=== PATIENT | female | born 1960 | race Caucasian/White ===

== ENCOUNTER → 2017-06-25 15:40 | Outpatient (CLI) | payer OTHER, SELFPAY ==
[2017-06-25 18:10] LABS: Anion Gap 4 (5-15); BUN 15 mg/dL (7-18); BUN/Creat Ratio 17.7 RATIO (10-20); Calcium,Total 9.2 mg/dL (8.5-10.1); Chloride 107 mmol/L (98-107); Cholesterol 200 mg/dL (200); Creatinine, Serum 0.85 mg/dL (0.55-1.02); EST Glomerular Filtration Rate 73 mL/min (>60); Est Glom Filt Rate - Afr Amer 89 mL/min (>60); Glucose 84 mg/dL (74-106); High Density Lipoprotein 53 mg/dL; Sodium Level 140 mmol/L (136-145); Triglycerides 166 mg/dL; Very Low Density Lipoprotein 33 mg/dL (5-40)
[2017-06-25 18:16] LABS: Vitamin D,25 Hydroxy 25.6 ng/mL (29.95-100.01)
== END ==
PROVIDERS: Family Provider Family Medicine; PCP Family Medicine; Visit Provider Family Medicine
DX: I11.0 Hypertensive heart disease with heart failure (principal); E55.9 Vitamin D deficiency, unspecified
CPT/HCPCS: 36415; 80048; 80061; 82306

== ENCOUNTER → 2017-12-26 10:32 | Outpatient (CLI) | payer OTHER, SELFPAY ==
[2017-12-26 12:39] LABS: Anion Gap 8 (5-15); BUN 27 mg/dL (7-18); BUN/Creat Ratio 37.4 RATIO (10-20); Calcium,Total 8.8 mg/dL (8.5-10.1); Chloride 103 mmol/L (98-107); Cholesterol 210 mg/dL (200); Creatinine, Serum 0.72 mg/dL (0.55-1.02); EST Glomerular Filtration Rate 88 mL/min (>60); Est Glom Filt Rate - Afr Amer 107 mL/min (>60); Glucose 94 mg/dL (74-106); High Density Lipoprotein 55 mg/dL; Potassium 3.8 mmol/L (3.5-5.1); Sodium Level 137 mmol/L (136-145); Triglycerides 111 mg/dL; Very Low Density Lipoprotein 22 mg/dL (5-40)
== END ==
PROVIDERS: Family Provider Family Medicine; PCP Family Medicine; Visit Provider Family Medicine
DX: I10 Essential (primary) hypertension (principal)
CPT/HCPCS: 36415; 80048; 80061

== ENCOUNTER → 2018-01-09 07:48 | Outpatient (CLI) | payer OTHER, SELFPAY ==
--- NOTE | 2018-01-09 07:51 | ECHOD_ITS ---
Reason For Study: SHORTNESS OF BREATH ON EXERTION Procedure This was a 2D Doppler, Color Flow transthoracic echocardiogram. Exam performed in department. Left Ventricle Normal size and thickness. The estimated ejection fraction is 65 %. Stage 1 diastolic dysfunction. No regional wall motion abnormalities noted. Right Ventricle Normal size and thickness. Normal systolic function. Atria Normal left atrium. Normal right atrium. Normal atrial septum. Mitral Valve The mitral valve is structurally normal. No prolapse or stenosis seen. Trivial mitral valve insufficiency. Tricuspid Valve Normal tricuspid valve. Mild (1+) tricuspid valve insufficiency. Right ventricular systolic pressure estimated to be 36 mmHg. Aortic Valve Trisinus/trileaflet aortic valve. Normal aortic valve. Pulmonic Valve Normal pulmonic valve. Great Vessels Normal aortic root. Normal arch. Normal inferior vena cava. Inferior vena cava collapse with sniff. Pericardium/Pleural No pericardial effusion. MMode/2D Measurements & Calculations LVIDd: 4.8 cm IVSd: 0.98 cm Ao root diam: 3.2 cm LVIDs: 3.2 cm LVPWd: 1.0 cm RVDd: 4.2 cm FS: 32.8 % LAV(MOD-bp): 56.3 ml LVAd ap4: 36.3 cm2 SV(MOD-sp4): 80.2 ml LAV(MOD-bp) Indexed: 27.0 ml/m2 EDV(MOD-sp4): 127.6 ml LAV(MOD-sp2): 61.6 ml EDV(sp4-el): 134.7 ml LAV(MOD-sp4): 50.7 ml LVAs ap4: 19.3 cm2 ESV(MOD-sp4): 47.4 ml ESV(sp4-el): 49.1 ml EF(MOD-sp4): 62.9 % EF(sp4-el): 63.5 % SV(sp4-el): 85.6 ml LA A4 area: 18.7 cm2 LA dimension(2D): 3.7 cm RA A4 area: 15.4 cm2 Time Measurements MV dec time: 0.19 sec Doppler Measurements & Calculations MV E max esteban: 96.4 cm/sec Lat Peak E' Esteban: 8.0 cm/sec Med Peak E' Esteban: 7.4 cm/sec MV A max esteban: 103.0 cm/sec E/E' lat: 12.1 E/E' med: 13.1 MV E/A: 0.94 Ao V2 max: 154.5 cm/sec LV V1 max: 110.8 cm/sec PA V2 max: 86.6 cm/sec Ao max P.5 mmHg LV V1 max P.9 mmHg TR max esteban: 278.2 cm/sec TR max P.0 mmHg Interpretation Summary The estimated ejection fraction is 65 %. Stage 1 diastolic dysfunction. Trivial mitral valve insufficiency. Mild (1+) tricuspid valve insufficiency. Right ventricular systolic pressure estimated to be 36 mmHg. There is no comparison study available. Ordering Physician: Yusuf Bobo Referring Physician: Yusuf Bobo Performed By: Daina Amanda RDCS
--- OUTSIDE RECORDS SUMMARY | 2018-03-06 12:08 | XMS RPT_ITS ---
:1960 Author Organization [facility] Care Team Providers Name Role Phone Chris Gutierrez Attending Unavailable BoboYusuf Referring Unavailable Bobo, Yusuf Attending Unavailable Bobo, Yusuf Primary Care Unavailable Bobo, Yusuf Attending Unavailable Bobo, Yusuf Primary Care Unavailable Bobo, Yusuf Attending Unavailable Bobo, Yusuf Referring Unavailable Bobo, Yusuf Primary Care Unavailable PROBLEMS PROBLEMS DATE TYPE CONDITION / CODE ATTENDING STATUS SOURCE 01/28/2018 Unknown R06.02 - Shortness Chris Gutierrez Active Nae of breath / Community R06.02(ICD-10) Hospital Repository 12/26/2017 Unknown I10 - Essential Yusuf Bobo Active Nae (primary) Community hypertension / Hospital I10(ICD-10) Repository PROCEDURES PROCEDURES No Procedure Records FoundRESULTS RESULTS ECHOCARDIOGRAM COMPLETE Observed: 01/09/2018 Status: F Source: NAE 3:25 PM [facility] REPOSITORY [facility] Cardiovascular Services [address] [place] [address] Echo Complete 01/09/18 0802 MR#: [id number] Acct: [id number] Name: BJ ROSADO Rep #: [id number] : 1960 57 From: Chris Gutierrez MD Attending Dr: Yusuf Bobo MD Status: REG CLI Ordering Dr: Yusuf Bobo MD Date: 01/09/18 Location: [facility] Sex: F C Admitted: Reason For Study: SHORTNESS OF BREATH ON EXERTION Procedure This was a 2D Doppler, Color Flow transthoracic echocardiogram. Exam performed in department. Left Ventricle Normal size and thickness. The estimated ejection fraction is 65 %. Stage 1 diastolic dysfunction. No regional wall motion abnormalities noted. Right Ventricle Normal size and thickness. Normal systolic function. Atria Normal left atrium. Normal right atrium. Normal atrial septum. Mitral Valve The mitral valve is structurally normal. No prolapse or stenosis seen. Trivial mitral valve insufficiency. Tricuspid Valve Normal tricuspid valve. Mild (1+) tricuspid valve insufficiency. Right ventricular systolic pressure estimated to be 36 mmHg. Aortic Valve Trisinus/trileaflet aortic valve. Normal aortic valve. Pulmonic Valve Normal pulmonic valve. Great Vessels Normal aortic root. Normal arch. Normal inferior vena cava. Inferior vena cava collapse with sniff. Pericardium/Pleural No pericardial effusion. MMode/2D Measurements AND Calculations LVIDd: 4.8 cm IVSd: 0.98 cm Ao root diam: 3.2 cm LVIDs: 3.2 cm LVPWd: 1.0 cm RVDd: 4.2 cm FS: 32.8 % LAV(MOD-bp): 56.3 ml LVAd ap4: 36.3 cm2 SV(MOD-sp4): 80.2 ml LAV(MOD-bp) Indexed: 27.0 ml/m2 EDV(MOD-sp4): 127.6 ml LAV(MOD-sp2): 61.6 ml EDV(sp4-el): 134.7 ml LAV(MOD-sp4): 50.7 ml LVAs ap4: 19.3 cm2 ESV(MOD-sp4): 47.4 ml ESV(sp4-el): 49.1 ml EF(MOD-sp4): 62.9 % EF(sp4-el): 63.5 % SV(sp4-el): 85.6 ml LA A4 area: 18.7 cm2 LA dimension(2D): 3.7 cm RA A4 area: 15.4 cm2 Time Measurements MV dec time: 0.19 sec Doppler Measurements AND Calculations MV E max esteban: 96.4 cm/sec Lat Peak E' Esteban: 8.0 cm/sec Med Peak E' Esteban: 7.4 cm/sec MV A max esteban: 103.0 cm/sec E/E' lat: 12.1 E/E' med: 13.1 MV E/A: 0.94 Ao V2 max: 154.5 cm/sec LV V1 max: 110.8 cm/sec PA V2 max: 86.6 cm/sec Ao max P.5 mmHg LV V1 max P.9 mmHg TR max esteban: 278.2 cm/sec TR max P.0 mmHg Interpretation Summary The estimated ejection fraction is 65 %. Stage 1 diastolic dysfunction. Trivial mitral valve insufficiency. Mild (1+) tricuspid valve insufficiency. Right ventricular systolic pressure estimated to be 36 mmHg. There is no comparison study available. Ordering Physician: Yusuf Bobo Referring Physician: Yusuf Bobo Performed By: Daina Amanda RDCS 01/09/18 1525 Date Chris Gutierrez MD CC: Yusuf Bobo MD Date Dictated: 01/09/18 0802 Date Transcribed: 01/09/18 1525 Clinical Medical Assistant: Signed BASIC METABOLIC Collected: 12/26/2017 Status: F Source: NAE PROFILE (BMP) 10:34 AM [facility] REPOSITORY TYPE CODE TESTS RESULT OUT OF RANGE REFERENCE UNITS LAB L501.0100 74-106 mg/dL Normal GLU 94 Result Comment: Please note revised GLUCOSE reference range effective 2017. LAB L501.1000 7-18 mg/dL High BUN 27 LAB L501.1100 0.55-1.02 mg/dL Normal CREAT,SERUM 0.72 Result Comment: The validity of the calculated GFR AND GFRAA in patients over 70 years has not been determined. Clinical correlation is essential. LAB L501.1110 >60 mL/min Normal EST GFR 88 Result Comment: Non- GFR Calc LAB L501.1115 >60 mL/min Normal EST GFR - AA 107 Result Comment: GFR Calc LAB L501.1300 10-20 RATIO High BUN/CRE 37.4 LAB L501.2200 8.5-10.1 mg/dL CA Normal 8.8 LAB L501.5300 136-145 mmol/L NA Normal 137 LAB L501.5600 3.5-5.1 mmol/L K Normal 3.8 LAB L501.5900 98-107 mmol/L CL Normal 103 LAB L501.6100 21.0-32.0 mmol/L Normal CO2 26.0 LAB L501.6200 5-15 Normal GAP 8 Performed By: #### L500.2500, L500.4100 #### [facility] [address] [place], [place], [id number] LIPID PROFILE Collected: 12/26/2017 Status: F Source: [place] 10:34 AM [facility] REPOSITORY TYPE CODE TESTS RESULT OUT OF RANGE REFERENCE UNITS LAB L501.4900 200 mg/dL High CHOL 210 Result Comment: <200 mg/dL Desirable 200-240 mg/dL Borderline >240 mg/dL High Risk LAB L501.5000 mg/dL Normal TRIG 111 Result Comment: The drugs N-Acetylcysteine and Metamizole may falsely depress this assay. Serum Triglycerides Reference Interval Normal <150 mg/dL Borderline high 150 - 199 mg/dL High 200 - 499 mg/dL Very High > or = 500 mg/dL LAB L501.6400 mg/dL Normal HDL 55 Result Comment: The drugs N-Acetylcysteine and Metamizole may falsely depress this assay. Reference Range HDL <40 mg/dL Low HDL Cholesterol HDL >or= 60 mg/dL High HDL Cholesterol LAB L501.6500 0-130 mg/dL High LDL 133 LAB L501.6600 5-40 mg/dL Normal VLDL 22 Performed By: #### L500.2500, L500.4100 #### [facility] [address] [place], [place], [id number] BASIC METABOLIC Collected: 06/25/2017 Status: F Source: NAE PROFILE (BMP) 3:43 PM [facility] REPOSITORY TYPE CODE TESTS RESULT OUT OF RANGE REFERENCE UNITS LAB L501.0100 74-106 mg/dL Normal GLU 84 Result Comment: Please note revised GLUCOSE reference range effective 2017. LAB L501.1000 7-18 mg/dL Normal BUN 15 LAB L501.1100 0.55-1.02 mg/dL Normal CREAT,SERUM 0.85 Result Comment: The validity of the calculated GFR AND GFRAA in patients over 70 years has not been determined. Clinical correlation is essential. LAB L501.1110 >60 mL/min Normal EST GFR 73 Result Comment: Non- GFR Calc LAB L501.1115 >60 mL/min Normal EST GFR - AA 89 Result Comment: GFR Calc LAB L501.1300 10-20 RATIO Normal BUN/CRE 17.7 LAB L501.2200 8.5-10.1 mg/dL CA Normal 9.2 LAB L501.5300 136-145 mmol/L NA Normal 140 LAB L501.5600 3.5-5.1 mmol/L K Normal 4.0 LAB L501.5900 98-107 mmol/L CL Normal 107 LAB L501.6100 21.0-32.0 mmol/L Normal CO2 29.0 LAB L501.6200 5-15 Low GAP 4 Performed By: #### L500.2500, L500.4100 #### [facility] [address] [place], [address] LIPID PROFILE Collected: 06/25/2017 Status: F Source: [place] 3:43 PM [facility] REPOSITORY TYPE CODE TESTS RESULT OUT OF RANGE REFERENCE UNITS LAB L501.4900 200 mg/dL Normal CHOL 200 Result Comment: <200 mg/dL Desirable 200-240 mg/dL Borderline >240 mg/dL High Risk LAB L501.5000 mg/dL Normal TRIG 166 Result Comment: The drugs N-Acetylcysteine and Metamizole may falsely depress this assay. Serum Triglycerides Reference Interval Normal <150 mg/dL Borderline high 150 - 199 mg/dL High 200 - 499 mg/dL Very High > or = 500 mg/dL LAB L501.6400 mg/dL Normal HDL 53 Result Comment: The drugs N-Acetylcysteine and Metamizole may falsely depress this assay. Reference Range HDL <40 mg/dL Low HDL Cholesterol HDL >or= 60 mg/dL High HDL Cholesterol LAB L501.6500 0-130 mg/dL Normal LDL 114 LAB L501.6600 5-40 mg/dL Normal VLDL 33 Performed By: #### L500.2500, L500.4100 #### [facility] [address] [place], [address] VITAMIN D,25 HYDROXY Collected: 06/25/2017 Status: F Source: NAE 3:43 PM [facility] REPOSITORY TYPE CODE TESTS RESULT OUT OF REFERENCE UNITS RANGE LAB L506.1000 29.95-100.01 ng/mL Low Vitamin D 25.6 25-OH Result Comment: Vitamin D 25(OH) Status Range Deficiency <20 ng/mL (50nmol/L) Insuffciency 20 - 30 ng/mL (50 - 75 nmol/L) Sufficiency 30 - 100 ng/mL (75 - 250 nmol/L) Toxicity >100 ng/mL (>250 nmol/L) Performed By: #### L506.1000 #### [facility] [address] [facility] [place], [address] ALLERGIES ALLERGIES No Allergies Records FoundENCOUNTERS ENCOUNTERS ADMIT/DISCHARGE ACCOUNT ADMITTING ENCOUNTER LOCATION SOURCE NUMBER CLASS 01/09/2018 [id number] Ambulatory BMSBuilding:W [place] Repository 01/09/[id number] ing:[facility] Repository 12/26/2017 [id number] Ambulatory [address] ing:[facility] Repository 06/25/[id number] [facility] PAYERS PAYERS ENCOUNTER GUARANTOR PAYER SUBSCRIBER SOURCE 01/09/2018 [facility] Primary [facility] [id number] [facility] Insurance:Walt FRASERB: [address] Number: [id number] [address]Tfo: [phone] [id number] Repository [phone] () Date:5556-02-97EB [address], [place] [address]AG: 01/09/2018 Secondary NOT GIVENUNK [place] Insurance:SELF PAY Community [facility] Number: Effective Repository Date:2018-01-09 01/09/2018 [facility] Primary [facility] Nae [id number] Insurance:CIGNAPolicy BELCHERDOB: [facility] [address] [place] Number: [id number] [facility] [address]Cax: [phone]) [id number] Repository [phone] () Date:[id number] [address]FD: 01/09/2018 Secondary NOT GIVENUNK [place] Insurance:SELF PAY [facility] Effective Repository Date:2017-12-26 12/26/2017 [facility] Nae [id number] Insurance:CIGNAPolicy BelcherDOB: [facility] [address] [place] Number: [id number] [facility] [address]Heo: [phone] [id number] Repository [phone] () Date:7680-35-15[address] [address]YK: 12/26/2017 Secondary NOT GIVENUNK [place] Insurance:SELF PAY [facility] Number: Effective Repository Date:2017-12-26 06/25/2017 [facility] N[address] Insurance:CIGNAPolicy BelcherDOB: [address] [place] Number: [id number] [facility] [address]Dvn: [phone]) [id number] Repository [phone] () Date:1980-00-52[address] [address]LD: 06/25/2017 Secondary NOT GIVENUNK Nae Insurance:SELF PAY [facility] Number: Effective Repository Date:2017-06-25
== END ==
PROVIDERS: Family Provider Family Medicine; PCP Family Medicine; Referring Provider Family Medicine; Visit Provider Family Medicine
DX: R06.02 Shortness of breath (principal)
CPT/HCPCS: 93306

== ENCOUNTER → 2018-06-26 10:55 | Outpatient (CLI) | payer OTHER, SELFPAY ==
[2018-06-26 14:56] LABS: Anion Gap 6 (5-15); BUN 19 mg/dL (7-18); BUN/Creat Ratio 22.8 RATIO (10-20); Chloride 104 mmol/L (98-107); Creatinine, Serum 0.83 mg/dL (0.55-1.02); EST Glomerular Filtration Rate 75 mL/min (>60); Est Glom Filt Rate - Afr Amer 90 mL/min (>60); Glucose 105 mg/dL (74-106); Potassium 3.7 mmol/L (3.5-5.1); Sodium Level 138 mmol/L (136-145)
== END ==
PROVIDERS: Family Provider Family Medicine; PCP Family Medicine; Referring Provider Family Medicine; Visit Provider Family Medicine
DX: I10 Essential (primary) hypertension (principal)
CPT/HCPCS: 36415; 80048

== ENCOUNTER → 2019-06-23 11:04 | Outpatient (CLI) | payer OTHER, SELFPAY ==
[2019-06-23 12:49] LABS: Anion Gap 6 (5-15); BUN 17 mg/dL (7-18); BUN/Creat Ratio 19.4 RATIO (10-20); Calcium,Total 9.5 mg/dL (8.5-10.1); Chloride 103 mmol/L (98-107); Cholesterol 222 mg/dL (200); Creatinine, Serum 0.88 mg/dL (0.55-1.02); EST Glomerular Filtration Rate 70 mL/min (>60); Est Glom Filt Rate - Afr Amer 85 mL/min (>60); Glucose 92 mg/dL (74-106); High Density Lipoprotein 59 mg/dL; Potassium 3.8 mmol/L (3.5-5.1); Sodium Level 138 mmol/L (136-145); Triglycerides 118 mg/dL; Very Low Density Lipoprotein 24 mg/dL (5-40)
== END ==
PROVIDERS: PCP Family Medicine; Visit Provider Family Medicine
DX: I10 Essential (primary) hypertension (principal)
CPT/HCPCS: 36415; 80048; 80061

== ENCOUNTER 2020-11-19 16:33 | Inpatient (IN) | payer MEDICARE, SELFPAY ==
[2020-11-19] VITALS (20 sets, daily range): BP systolic 141–192; BP diastolic 87–126; PULSE 85–119; RESP 12–46; TEMP 36.6; O2SAT 75–99; BMI 32.7; BMI 32.3
--- NOTE | 2020-11-19 16:57 | CT_ITS ---
INDICATION: covid 19 pulmonary embolism EXAMINATION: CTA Chest WO/W Contrast Injection TECHNIQUE: Helically acquired images were obtained of the chest following administration of IV contrast. A radiation dose optimization technique was used for this scan. 3D postprocessing images including MIPS were reviewed. IV Contrast dosage and agent: IV 100mL [id number] COMPARISON: None. FINDINGS: Lungs: Diffuse bilateral airspace opacities. Mediastinum: The heart is moderately enlarged. There is right hilar adenopathy. No mediastinal or axillary adenopathy. The thoracic aorta is unremarkable. No obvious filling defect seen within the visualized pulmonary arteries. Pleura: Unremarkable Bones/Soft tissues: No suspicious osseous or soft tissue lesions Upper abdomen: No visualized abnormalities in the upper abdomen. CT/CTA Chest W/WO Contrast IMPRESSION: No acute pulmonary emboli to segmental level. Diffuse bilateral airspace opacities consistent with Covid pneumonia. Electronically Signed: Perfecto Sevilla MD at 18:25 EDT Tel , Service support ,
--- NOTE | 2020-11-19 16:57 | EKG12_ITS ---
Test Reason : SOB Blood Pressure : / mmHG Vent. Rate : 117 BPM Atrial Rate : 117 BPM P-R Int : 126 ms QRS Dur : 086 ms QT Int : 330 ms P-R-T Axes : 040 -02 096 degrees QTc Int : 460 ms Sinus tachycardia Nonspecific ST and T wave abnormality Abnormal ECG Confirmed by MELITA ELI, TOM ([id number]), telegraph editor STEFANIE LERNER ([id number]) on 11/22/2020 12:39:55 PM Referred By: OCHOA Confirmed By:JULIANNA HAU MD
--- NOTE | 2020-11-19 16:59 | EDS_ITS ---
HPI History of Present Illness Chief Complaint: Shortness of Breath Informant: patient and PCP Narrative Narrative: 60-year-old female presenting to the emergency department after EMS was called to her PCPs office for shortness of breath. Patient states on the of this month she became symptomatic with COVID-19. She eventually got the test back on the that showed that she was positive. She states that for the past week she has been significantly dyspneic. 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 She states her pulse ox has been in the 70s but she figured that this was Covid. Today she went to her PCP and was noted to be 73% on room air and with respiratory rates approaching 50 was sent to the emergency department. Patient denies any previous DVT or PE history. PFSH PFS Medical History (Updated 11/19/20 @ 18:[address] Corinne Harris MD) Anxiety Depression GERD (gastroesophageal reflux disease) HTN (hypertension) Home Medications ascorbic acid (vitamin C) 500 mg PO DAILY 11/19/20 [History Last Taken 11/18/20] aspirin 81 mg PO DAILY 11/19/20 [History Last Taken 1 Week Ago ~11/12/20] cholecalciferol (vitamin D3) 50 mcg PO DAILY 11/19/20 [History Last Taken 11/18/20] hydrochlorothiazide 25 mg PO DAILY 11/19/20 [History Last Taken 1 Week Ago ~11/12/20] losartan 100 mg PO DAILY 11/19/20 [History Last Taken 1 Week Ago ~11/12/20] omeprazole 10 mg PO DAILY 11/19/20 [History Last Taken 1 Week Ago ~11/12/20] zinc 50 mg PO DAILY 11/19/20 [History Last Taken 11/18/20] Allergy/AdvReac Type Severity Reaction Status Date / Time No Known Allergies Allergy Verified 11/19/20 16:39 Family History (Updated 11/19/20 @ 18:[address] Corinne Harris MD) Mother CVA (cerebral vascular accident) Diabetes Hypertension Heart disease Father Hypertension Surgical History (Updated 11/19/20 @ 18:[address] Corinne Harris MD) No history of previous surgery Social History (Updated 11/19/20 @ 18:[address] Corinne Harris MD) household members: spouse Smoking Status: Never smoker alcohol intake: never substance use type: does not use ROS ROS ED Constitutional Constitutional ED: Denies chills or weight loss Eyes Eyes: Denies change in vision or diplopia ENT ENT ED: Denies ear pain, rhinorrhea or sore throat Cardiovascular Cardiovascular: Denies chest pain, orthopnea, palpitations or racing heartbeat Respiratory/Chest Respiratory/Chest: Reports cough, dyspnea and dyspnea on exertion; Denies orthopnea Gastrointestinal Gastrointestinal: Denies abdominal pain, diarrhea, nausea or vomiting Genitourinary Genitourinary ED: Denies dysuria, hematuria or urinary frequency Musculoskeletal Musculoskeletal: Denies arthralgias or myalgias Integumentary Denies abscess or rash Neurologic Neurologic: Denies headache(s) or weakness Psychiatric Psychiatric: Denies anxiety, depression, suicidal ideation or suicidal thoughts Endocrine Endocrinology: Denies polydipsia, polyphagia or polyuria Allergic/Immunologic Allergic/Immunologic ED: Denies mouth swelling, tongue swelling or urticaria EXAM Physical Exam Narrative Exam Narrative: Patient presents in respiratory distress hypoxic with a respiratory rate of 46. Const Vital Signs: 11/19/20 16:35 11/19/20 16:39 11/19/20 16:46 Temperature 97.8 F Temperature Source Oral Pulse Rate 114 H Respiratory Rate 46 H 30 H Respiratory Effort Short of Breath Labored Accessory Muscle Use Respiratory Depth Shallow Respiratory Pattern Tachypnea Blood Pressure 187/118 H Blood Pressure Mean 141 Pulse Ox 75 94 Oxygen Delivery Method Room Air Non-Rebreather Non-Rebreather Oxygen Flow Rate (L/min) 15 15 Fraction of Inspired Oxygen (FIO2) 11/19/20 17:00 Temperature Temperature Source Pulse Rate 113 H Respiratory Rate 46 H Respiratory Effort Respiratory Depth Respiratory Pattern Blood Pressure Blood Pressure Mean Pulse Ox 90 Oxygen Delivery Method Bi-pap Oxygen Flow Rate (L/min) Fraction of Inspired Oxygen (FIO2) 40 Positive well nourished and well developed General Appearance ED: well developed HEENT Reports normocephalic, head/scalp atraumatic and moist mucous membranes Eyes PERRL and EOMs intact bilaterally Neck no lymphadenopathy, supple and no JVD Resp clear to auscultation bilaterally Resp Narrative: Patient is tachypneic with increased work of breathing Cardio regular rate, regular rhythm and no murmurs GI normal to inspection, nondistended, normoactive bowel sounds and non-tender Palpation: soft Back/Spine no CVA tenderness and normal ROM Extremity normal to inspection General Extremety ED: Negative for edema General Extremity: Negative for edema Neuro oriented x3 and CN's II-XII intact bilaterally Sensorium / Orientation: alert Motor Exam: strength 5/5 throughout Psych mental status grossly normal Mood & Affect: Negative for depressed or tearful Skin no rashes or lesions noted and no wounds MDM MDM MDM Narrative Medical decision making narrative: Patient was placed on the monitor and was placed on BiPAP. Unfortunately the patient did not tolerate the BiPAP and was placed on nasal cannula which she is doing better with. She was given Decadron. CTA of the chest was also obtained. This was negative for pulmonary embolism to the segmental level. There is diffuse groundglass opacities. Patient will be admitted into the ICU. Lab Data Attestation: I reviewed the patient's lab results. Labs: Laboratory Results - last 24 hr 11/19/20 11/19/20 11/19/20 16:49 16:49 16:49 WBC 10.0 RBC 4.43 Hgb 13.2 Hct 38.9 MCV 87.8 MCH 29.8 MCHC 33.9 RDW Std Deviation 40.1 RDW Coeff of Kyle 13.1 Plt Count 429 MPV 10.2 Immature Gran % (Auto) 1.000 H Neut % (Auto) 76.7 H Lymph % (Auto) 10.5 L [place] % (Auto) 9.8 Eos % (Auto) 1.6 Baso % (Auto) 0.4 Absolute Neuts (auto) 7.7 Absolute Lymphs (auto) 1.05 Nucleated RBC % 0 Fibrinogen 624 H D-Dimer Quant (PE/DVT) 0.63 H* Sodium 139 Potassium 3.8 Chloride 106 Carbon Dioxide 25.0 Anion Gap 8 BUN 16 Creatinine 1.06 H Estim Creat Clear Calc 54.20 Est GFR (MDRD) Af Amer 68 Est GFR (MDRD) Non-Af 56 L BUN/Creatinine Ratio 15.1 Glucose 152 H Lactic Acid Calcium 9.0 Phosphorus Magnesium Ferritin Total Bilirubin 0.40 AST 23 ALT 40 Alkaline Phosphatase 268 H Lactate Dehydrogenase 321 H Troponin I High Sens 17 C-React Prot Ext Range 14.60 H B-Natriuretic Peptide Total Protein 7.4 Albumin 2.3 L Globulin 5.1 H Albumin/Globulin Ratio 0.5 L Procalcitonin 11/19/20 11/19/20 11/19/20 16:49 16:49 16:49 WBC RBC Hgb Hct MCV MCH MCHC RDW Std Deviation RDW Coeff of Kyle Plt Count MPV Immature Gran % (Auto) Neut % (Auto) Lymph % (Auto) [place] % (Auto) Eos % (Auto) Baso % (Auto) Absolute Neuts (auto) Absolute Lymphs (auto) Nucleated RBC % Fibrinogen D-Dimer Quant (PE/DVT) Sodium Potassium Chloride Carbon Dioxide Anion Gap BUN Creatinine Estim Creat Clear Calc Est GFR (MDRD) Af Amer Est GFR (MDRD) Non-Af BUN/Creatinine Ratio Glucose Lactic Acid 1.4 Calcium Phosphorus 3.7 Magnesium 1.7 Ferritin 181 Total Bilirubin AST ALT Alkaline Phosphatase Lactate Dehydrogenase Troponin I High Sens C-React Prot Ext Range B-Natriuretic Peptide Total Protein Albumin Globulin Albumin/Globulin Ratio Procalcitonin 0.10 H 11/19/20 16:49 WBC RBC Hgb Hct MCV MCH MCHC RDW Std Deviation RDW Coeff of Kyle Plt Count MPV Immature Gran % (Auto) Neut % (Auto) Lymph % (Auto) [place] % (Auto) Eos % (Auto) Baso % (Auto) Absolute Neuts (auto) Absolute Lymphs (auto) Nucleated RBC % Fibrinogen D-Dimer Quant (PE/DVT) Sodium Potassium Chloride Carbon Dioxide Anion Gap BUN Creatinine Estim Creat Clear Calc Est GFR (MDRD) Af Amer Est GFR (MDRD) Non-Af BUN/Creatinine Ratio Glucose Lactic Acid Calcium Phosphorus Magnesium Ferritin Total Bilirubin AST ALT Alkaline Phosphatase Lactate Dehydrogenase Troponin I High Sens C-React Prot Ext Range B-Natriuretic Peptide 23.2 Total Protein Albumin Globulin Albumin/Globulin Ratio Procalcitonin Radiography Diagnostic Testing: Clinical Impression(s) from Imaging Studies Chest CTA 11/19/20 16:57 IMPRESSION: No acute pulmonary emboli to segmental level. Diffuse bilateral airspace opacities consistent with Covid pneumonia. 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
[2020-11-19 17:14] LABS: Absolute Lymphocyte Count 1.05 X10^3/uL (0.83-4.51); Absolute Neutrophil Count 7.7 X10^3/uL (2.0-7.7); Basophil# 0.04 X10^3/uL; Basophil% 0.4 % (0-1); Eosinophil# 0.16 X10^3/uL; Eosinophils% 1.6 % (0-5); Hematocrit 38.9 % (37-47); Hemoglobin 13.2 g/dL (12.0-15.0); Lymphocyte # 1.05 X10^3/ul (0.83-4.51); Lymphocyte % 10.5 % (19-41); Mean Corp Hgb Conc 33.9 g/dL (32-36); Mean Corpuscular Hgb 29.8 pg (27.0-32.0); Mean Corpuscular Volume 87.8 fL (81-99); Mean Platelet Vol. 10.2 fl (6.2-12.0); Monocyte# 0.98 X10^3/uL; Monocyte% 9.8 % (0-10); NRBC Flagged by Analyzer 0 % (0-5); Neutrophil # 7.68 X10^3/uL (2.7-7.7); Neutrophil % 76.7 % (47-70); Platelet Count 429 K/mm3 (150-450); RBC Distribution Width CV 13.1 % (11.6-14.6); RBC Distribution Width SD 40.1 fl (35.1-43.9); Red Blood Count 4.43 M/mm3 (4.2-5.4)
[2020-11-19 17:24] LABS: Fibrinogen 624 mg/dl (203-444)
--- NOTE | 2020-11-19 17:25 | PCM.HP.STD ---
HPI - General General Date of Admission: 11/19/20 Date of Service: 11/19/20 Chief Complaint: COVID + 10/30, progressively worsening, hypoxic in the 70s at home for days. HPI Narrative The patient is a 60 y/o F w/ PMHx: Obesity, HTN, GERD, Anxiety and Depression with history of initial onset of Covid type symptoms on 10/29/2020 with reported positive test results called on 11/06/2020 although from records potentially tested on 10/30/2020 with ongoing worsening dyspnea, hypoxic at home on her pulse oximeter in the 70s for nearly the last week, unable to walk or take care of her animals. Patient was evaluated by her primary care physician on day of ED presentation and was noted at that time to be hypoxic at 73% with evidence of respiratory distress with respiratory rate approaching 50 with referral to the ED at that time. Patient is not vaccinated against COVID. Work-up in the ED included T1.8, heart rate 114, BP 187/118, respiratory rate 46, initially 75% oxygenation on room air, initially transition to a nonrebreather 15 L and eventually BiPAP, CBC with WC 10, hemoglobin 13.2, platelet 429 with mild increased immature granulocytes, fibrinogen 624, D-dimer 0.63, CMP with BUN/creatinine 16/1.06, glucose 152, lactic acid 1.4, alk phos 268, LDH 321, CRP 14.60, high-sensitivity cardiac troponin 16, procalcitonin 0.10, blood culture x2 pending per ED, CTPA obtained per ED and read pending upon admission; however, evidence significant diffuse patchy infiltrates [facility] Medical History (Updated 11/19/20 @ 18:[address] Corinne Harris MD) Anxiety Depression GERD (gastroesophageal reflux disease) HTN (hypertension) Home Medications aspirin 81 mg PO DAILY 11/19/20 [History Last Taken Unknown] hydrochlorothiazide 25 mg PO DAILY 11/19/20 [History Last Taken Unknown] losartan 100 mg PO DAILY 11/19/20 [History Last Taken Unknown] metoprolol tartrate 50 mg PO BID 11/19/20 [History Last Taken Unknown] omeprazole 10 mg PO DAILY 11/19/20 [History Last Taken Unknown] Allergy/AdvReac Type Severity Reaction Status Date / Time No Known Allergies Allergy Verified 11/19/20 16:39 Family History (Updated 11/19/20 @ 18:[address] Corinne Harris MD) Mother CVA (cerebral vascular accident) Diabetes Hypertension Heart disease Father Hypertension Surgical History (Updated 11/19/20 @ 18:[address] Corinne Harris MD) No history of previous surgery Social History (Updated 11/19/20 @ 18:[address] Corinne Harris MD) household members: spouse Smoking Status: Never smoker alcohol intake: never substance use type: does not use ROS ROS Narrative Admission Review of Systems: CONSTITUTIONAL: No weight loss, + fever, chills, weakness or fatigue. HEENT: Eyes: No visual loss, blurred vision, double vision or yellow sclerae. Ears, Nose, Throat: No hearing loss, sneezing, congestion, runny nose or sore throat. SKIN: No rash or itching, lesions, wounds. CARDIOVASCULAR: No chest pain, chest pressure or chest discomfort, palpitations, edema, orthopnea, syncopal events. RESPIRATORY: + shortness of breath, cough without marked sputum, No wheezing, hemoptysis. GASTROINTESTINAL: + anorexia, No nausea, vomiting or diarrhea, abdominal pain, melena, BRBPR. GENITOURINARY: No dysuria, frequency, urgency or retention. NEUROLOGICAL: No headache, dizziness, syncope, paralysis, ataxia, numbness or tingling in the extremities, focal weakness, change in bowel or bladder control, seizure. MUSCULOSKELETAL: + muscle, back pain, joint pain or stiffness. HEMATOLOGIC: No anemia, bleeding or bruising. LYMPHATICS: No enlarged nodes. No history of splenectomy. PSYCHIATRIC: + history of depression or anxiety. ENDOCRINOLOGIC: No reports of sweating, cold or heat intolerance. No polyuria or polydipsia. ALLERGIES: No history of asthma, hives, eczema or rhinitis. Vital Signs Vital Signs Vital Signs: 11/19/20 16:35 11/19/20 16:39 11/19/20 16:46 Temperature 97.8 F Temperature Source Oral Pulse Rate 114 H Respiratory Rate 46 H 30 H Respiratory Effort Short of Breath Labored Accessory Muscle Use Respiratory Depth Shallow Respiratory Pattern Tachypnea Blood Pressure 187/118 H Blood Pressure Mean 141 Pulse Ox 75 94 Oxygen Delivery Method Room Air Non-Rebreather Non-Rebreather Oxygen Flow Rate (L/min) 15 15 Weight Weight: 208 lb 12.444 oz Body Mass Index (BMI) 32.7 Physical Exam Narrative Physical Examination: General: Awake, alert, oriented x 3 and cooperative, seated upright in the ED bed, fatigued, ill-appearing, evidence of respiratory distress, initially on BiPAP but difficulty tolerating. Skin: Normal color, normal turgor, no icterus, no cyanosis. HEENT: AT/NC, EOMI, PERRLA, dry MM, no carotid bruits or JVD noted. Lungs: Diffusely diminished, greater bases, significantly increased respiratory rate, accessory muscle usage, evidence of respiratory distress, no rales, ronchi or wheezing. Heart: Tachycardic with regular rhythm; no gallop, rub audible. Abdomen: Soft, obese, NTTP, ND, mildly hyperactive BS, no HSM. Extremities: No cyanosis, clubbing, or edema. No tenderness to palpation of bilateral lower extremities. Neurological: Patient awake, alert, oriented as noted, cognitive function intact; pupils equally reactive to light and accommodation, cranial nerves II-XII grossly normal, moving all 4 extremities, no focal deficits, strength severely globally Christen secondary to acute presentation. Psychiatric: Affect appears fatigued, ill-appearing, evidence of respiratory distress, no acute evidence of depressive or anxiety feelings. Results Lab / Micro Data Result Diagrams: 11/19/20 16:49 11/19/20 16:49 Labs: Laboratory Results - last 24 hr 11/19/20 16:49: WBC 10.0, RBC 4.43, Hgb 13.2, Hct 38.9, MCV 87.8, MCH 29.8, MCHC 33.9, RDW Std Deviation 40.1, RDW Coeff of Kyle 13.1, Plt Count 429, MPV 10.2, Immature Gran % (Auto) 1.000 H, Neut % (Auto) 76.7 H, Lymph % (Auto) 10.5 L, [place] % (Auto) 9.8, Eos % (Auto) 1.6, Baso % (Auto) 0.4, Absolute Neuts (auto) 7.7, Absolute Lymphs (auto) 1.05, Nucleated RBC % 0 11/19/20 16:49: Fibrinogen 624 H Assessment & Plan Assessment/Plan (1) Pneumonia due to COVID-19 virus: PLAN: The patient is a 60 y/o F w/ PMHx: Obesity, HTN, GERD, Anxiety and Depression with history of initial onset of Covid type symptoms on 10/29/2020 with reported positive test results called on 11/06/2020 although from records potentially tested on 10/30/2020 with ongoing worsening dyspnea, hypoxic at home on her pulse oximeter in the 70s for nearly the last week, unable to walk or take care of her animals. 1. Acute Hypoxic Respiratory Failure secondary to Acute Bilateral Pneumonia secondary to Acute Viral Syndrome, COVID-19: Will admit to the ICU, patient with some difficulty maintaining appropriate saturations on BiPAP, did not tolerate well, will attempt air Vo however if remains hypoxic may need to try BiPAP again, consult the Parquetry Layer, consult ID for consideration barcitinib of which Dr. Hawkins is aware, PRN albuterol, HOB, IS parameters w/ pending sputum cultures, respiratory viral panel and urine antigens, will obtain Ferritin and BNP, CTPA being obtained by the ED upon admission and read is pending currently, continue supportive care including q 2 hour turning including prone given no prone bed availability, closely monitor for worsening status for ARDS and multiorgan failure, will initiate and continue IV decadron x 10 doses, given presentation timeline patient is not a candidate for remdesivir, will pulse dose with IV lasix 40 mg IV to start now. 2. Hyperglycemia: Admission glucose 152, likely stress response, will obtain A1c to be cautious given steroid usage plan. 3. Hypertension: Continue home regimen including metoprolol, losartan, hydrochlorothiazide, PRN hydralazine. 4. Hyperlipidemia: Not on regimen, defer to outpatient. 5. Anxiety and depression: Not on regimen, defer to outpatient. 6. Obesity: Weight loss and lifestyle changes encouraged. 7. GERD: We will continue patient home PPI. 8. DVT prophylaxis: SCDs, Lovenox. 9. CODE status: Patient HCPOA and living will are both not in place. Given acute hypoxic respiratory failure with Covid pneumonia presentation, discussed CODE status at length including difference between FULL code, DNR-CCA and DNR-CC status with both the patient and her spouse was present. Following discussions about the differences in these status, requested Full Code. Advanced Care Planning Face to Face Time: 16 minutes. Charges/Coding Visit Charges Inpatient E&M: 75659 Init Hosp L3 Procedures Hospitalists Procedures: 58200 Advncd Care Plan 30 Min
[2020-11-19 17:31] LABS: ALB/GLOB Ratio 0.5 RATIO (0.9-2.4); AST(SGOT) 23 U/L (15-37); Alanine Aminotransfer ALT/SGPT 40 U/L (13-56); Albumin, Serum 2.3 g/dL (3.2-5.0); Alkaline Phosphatase 268 U/L (45-117); Anion Gap 8 (5-15); BUN 16 mg/dL (7-18); BUN/Creat Ratio 15.1 RATIO (10-20); Chloride 106 mmol/L (98-107); Creatinine, Serum 1.06 mg/dL (0.55-1.02); EST Glomerular Filtration Rate 56 mL/min (>60); Est Glom Filt Rate - Afr Amer 68 mL/min (>60); Globulin 5.1 g/dL (2.2-4.2); Glucose 152 mg/dL (74-106); LDH 321 U/L (84-246); Potassium 3.8 mmol/L (3.5-5.1); Protein, Total 7.4 g/dL (6.4-8.2); Sodium Level 139 mmol/L (136-145); Troponin-I HS 17 pg/mL (3.0-54.0)
[2020-11-19 17:33] LABS: Lactic Acid 1.4 mmol/L (0.4-1.9)
[2020-11-19 17:44] LABS: D-Dimer Quantitative (DVT/PE) 0.63 FEU/ug/m (0.27-0.49)
[2020-11-19] MEDS: dexAMETHasone 4 MG Tablet 6 MG PO (18:15)
[2020-11-19 18:16] LABS: Ferritin 181 ng/mL (8-252); Magnesium 1.7 mg/dL (1.6-2.6); Phosphorus 3.7 mg/dL (2.5-4.9)
[2020-11-19 18:17] LABS: BNP,B-Type NATRIURETIC PEPTIDE 23.2 pg/mL (0-100)
--- NOTE | 2020-11-19 18:45 | PCS.PANDOC ---
PANDEMIC DOCUMENTATION INITIATED: Date: 09/27/2020 Time: 190
[2020-11-19] MEDS: 0.9% Saline Lock 10 ML Syringe IV (20:28)
[2020-11-19] MEDS: Furosemide 40 MG/4 ML Vial IV (20:28)
[2020-11-19] MEDS: Metoprolol Tartrate 50 MG Tablet PO (21:19)
[2020-11-19] MEDS: Enoxaparin 30 MG/0.3 ML Syringe SC (21:19)
[2020-11-19] MEDS: Ascorbic Acid 500 MG Tablet PO (21:19)
[2020-11-20] VITALS (23 sets, daily range): BP systolic 110–167; BP diastolic 70–97; PULSE 78–105; RESP 18–34; TEMP 35.8–36.6; O2SAT 89–96
[2020-11-20 04:12] LABS: Absolute Lymphocyte Count 0.85 X10^3/uL (0.83-4.51); Absolute Neutrophil Count 7.7 X10^3/uL (2.0-7.7); Basophil# 0.04 X10^3/uL; Basophil% 0.4 % (0-1); Hematocrit 39.7 % (37-47); Hemoglobin 13.4 g/dL (12.0-15.0); Lymphocyte # 0.85 X10^3/ul (0.83-4.51); Lymphocyte % 9.5 % (19-41); Mean Corp Hgb Conc 33.8 g/dL (32-36); Mean Corpuscular Hgb 29.5 pg (27.0-32.0); Mean Corpuscular Volume 87.4 fL (81-99); Mean Platelet Vol. 10.2 fl (6.2-12.0); Monocyte# 0.31 X10^3/uL; Monocyte% 3.5 % (0-10); NRBC Flagged by Analyzer 0 % (0-5); Neutrophil # 7.67 X10^3/uL (2.7-7.7); Neutrophil % 85.7 % (47-70); Platelet Count 443 K/mm3 (150-450); RBC Distribution Width CV 13.2 % (11.6-14.6); Red Blood Count 4.54 M/mm3 (4.2-5.4)
[2020-11-20 04:36] LABS: ALB/GLOB Ratio 0.4 RATIO (0.9-2.4); AST(SGOT) 22 U/L (15-37); Alanine Aminotransfer ALT/SGPT 37 U/L (13-56); Albumin, Serum 2.4 g/dL (3.2-5.0); Alkaline Phosphatase 266 U/L (45-117); Anion Gap 7 (5-15); BUN 16 mg/dL (7-18); BUN/Creat Ratio 19.8 RATIO (10-20); Calcium,Total 9.3 mg/dL (8.5-10.1); Chloride 102 mmol/L (98-107); Creatinine, Serum 0.81 mg/dL (0.55-1.02); EST Glomerular Filtration Rate 77 mL/min (>60); Est Glom Filt Rate - Afr Amer 93 mL/min (>60); Estimated Creatinine Clearance 70.93 ml/min; Globulin 5.4 g/dL (2.2-4.2); Glucose 143 mg/dL (74-106); Potassium 4.4 mmol/L (3.5-5.1); Protein, Total 7.8 g/dL (6.4-8.2); Sodium Level 139 mmol/L (136-145)
--- NOTE | 2020-11-20 06:46 | CON.PCM.CC_ITS ---
Assessment & Plan Assessment/Plan (1) Acute hypoxemic respiratory failure due to COVID-19: (2) Adenoviral bronchitis: PLAN: RECOMMENDATIONS: 1. Continue Decadron as ordered to complete 10 days of therapy. 2. Continue prophylactic Lovenox. 3. As needed IV diuretic therapy to maintain euvolemic state. 4. Encourage incentive spirometer use and mobilize patient as tolerated. 5. Wean supplemental oxygen to maintain saturations at or above 90%. 6. Will defer need for baricitinib to ID. 7. The patient is medically stable for transfer out of the intensive care unit. IMPRESSIONS: 1. Acute hypoxemic respiratory failure secondary to combined COVID- 19/adenovirus infection The patient experienced symptom onset sometime around October 29, having tested positive for coronavirus approximately 1 week later. She has had progressive dyspnea and hypoxemia. In addition to the aforementioned, the patient also tested positive for adenovirus. CTA chest was negative for pulmonary embolism. The patient is outside of the window for remdesivir. She will be continued on Decadron and prophylactic Lovenox as ordered. Diuretic therapy will be utilized as needed to maintain euvolemic state. Infectious diseases has been consulted for consideration of baricitinib. 2. History of heart failure with preserved ejection fraction Surface echocardiogram from 2018 demonstrated stage I diastolic dysfunction and a right ventricular systolic pressure of 36 mmHg. It is reasonable to continue as needed diuretic therapy to maintain euvolemic state. 3. Hypertension/hyperlipidemia/obesity/GERD/anxiety/depression Complicates care, management, recovery and prognosis. Continue home medications as indicated. This note was generated with Vidible dictation software. It may contain incorrect words, spelling, and punctuation that were not noted in checking the note before signing. HPI Consult Data Date of Consult: 11/20/20 HPI Narrative Reason for Consultation: Acute hypoxemic respiratory failure secondary to COVID- 19 pneumonia HPI Narrative: The patient is a 60-year-old female, with a history as outlined below, who presented to the emergency department on November 19 with worsening dyspnea and hypoxemia. The patient's Covid symptoms initially began on October 29. The patient subsequently tested positive for Covid on November 06. The patient is unvaccinated. On presentation to the emergency department, the patient was noted to be afebrile and hypertensive. She was notably tachypneic and hypoxemic. Laboratory evaluation revealed no evidence of a leukocytosis. D-dimer was noted to be 0.63. Chemistry profile was notable for a creatinine of 1.06. Lactate was within normal limits. CRP was elevated at 14.6. Procalcitonin was noted to be 0.10. Respiratory viral panel was positive for adenovirus. Strep and urine Legionella antigens were negative. CTA chest showed no evidence for pulmonary embolism. Diffuse bilateral airspace opacities were noted. The patient was subsequently placed on Decadron and prophylactic Lovenox. Overnight, the patient has remained hemodynamically stable. She is currently maintaining appropriate saturations on 8 L/min via nasal cannula. The patient did receive a one-time dose of IV Lasix yesterday. COUNTS INCLUDE 234 BEDS AT THE [facility] Medical History (Updated 11/20/20 @ 06:[address] Akil Burnett, DO) Anxiety Depression GERD (gastroesophageal reflux disease) HTN (hypertension) Home Medications ascorbic acid (vitamin C) 500 mg PO DAILY 11/19/20 [History Last Taken 11/18/20] aspirin 81 mg PO DAILY 11/19/20 [History Last Taken 1 Week Ago ~11/12/20] cholecalciferol (vitamin D3) 50 mcg PO DAILY 11/19/20 [History Last Taken 11/18/20] hydrochlorothiazide 25 mg PO DAILY 11/19/20 [History Last Taken 1 Week Ago ~11/12/20] losartan 100 mg PO DAILY 11/19/20 [History Last Taken 1 Week Ago ~11/12/20] omeprazole 10 mg PO DAILY 11/19/20 [History Last Taken 1 Week Ago ~11/12/20] zinc 50 mg PO DAILY 11/19/20 [History Last Taken 11/18/20] Allergy/AdvReac Type Severity Reaction Status Date / Time No Known Allergies Allergy Verified 11/19/20 16:39 Family History Mother CVA (cerebral vascular accident) Diabetes Hypertension Heart disease Father Hypertension Surgical History No history of previous surgery Social History household members: spouse Smoking Status: Never smoker alcohol intake: never substance use type: does not use ROS Constitutional Constitutional: Reports fatigue, malaise and weakness Eyes Eyes: Denies blurry vision or change in vision ENT HEENT: Denies dizziness, headache(s) or nasal congestion Cardiovascular Cardiovascular: Reports dyspnea Respiratory/Chest Respiratory/Chest: Reports cough and dyspnea Gastrointestinal Gastrointestinal: Denies abdominal pain, diarrhea, nausea or vomiting Genitourinary Genitourinary: Denies difficulty urinating Musculoskeletal Musculoskeletal: Denies arthralgias, back pain or joint pain Integumentary Integumentary: Denies lesions, rash or skin ulcer Neurologic Neurologic: Denies abnormal gait or abnormal speech Psychiatric Psychiatric: Denies anxiety or depression Endocrine Endocrinology: Reports fatigue Hematologic/Lymphatic Hematologic/Lymphatic: Denies easy bleeding or easy bruising Physical Exam Const alert and no apparent distress General Appearance: cooperative Nutritional Appearance: obese HEENT normocephalic, head/scalp atraumatic and moist oral mucous membranes Eyes PERRL, EOMs intact bilaterally and conjunctivae normal Neck supple General: trachea midline Chest inspection of chest normal Resp Effort and Inspection: able to speak in complete sentences and tachypneic Auscultation: diminished lung sounds; Negative for rales, rhonchi or wheezes Cardio regular rate and regular rhythm GI normal to inspection, nondistended, normoactive bowel sounds Extremity no clubbing, cyanosis or edema Skin no rashes or lesions noted Neuro CN's II-XII intact bilaterally, moves all extremities and no focal motor d eficits Psych cooperative and affect normal Lab / Micro Data Result Diagrams: 11/20/20 03:40 11/20/20 03:40 Labs: Laboratory Results - last 24 hr 11/19/20 16:49: WBC 10.0, RBC 4.43, Hgb 13.2, Hct 38.9, MCV 87.8, MCH 29.8, MCHC 33.9, RDW Std Deviation 40.1, RDW Coeff of Kyle 13.1, Plt Count 429, MPV 10.2, Immature Gran % (Auto) 1.000 H, Neut % (Auto) 76.7 H, Lymph % (Auto) 10.5 L, [place] % (Auto) 9.8, Eos % (Auto) 1.6, Baso % (Auto) 0.4, Absolute Neuts (auto) 7.7, Absolute Lymphs (auto) 1.05, Nucleated RBC % 0 11/19/20 16:49: Fibrinogen 624 H, D-Dimer Quant (PE/DVT) 0.63 H* 11/19/20 16:49: Sodium 139, Potassium 3.8, Chloride 106, Carbon Dioxide 25.0, Anion Gap 8, BUN 16, Creatinine 1.06 H, Estim Creat Clear Calc 54.20, Est GFR (MDRD) Af Amer 68, Est GFR (MDRD) Non-Af 56 L, BUN/Creatinine Ratio 15.1, Glucose 152 H, Calcium 9.0, Total Bilirubin 0.40, AST 23, ALT 40, Alkaline Phosphatase 268 H, Lactate Dehydrogenase 321 H, Troponin I High Sens 17, C-React Prot Ext Range 14.60 H, Total Protein 7.4, Albumin 2.3 L, Globulin 5.1 H, Albumin/Globulin Ratio 0.5 L 11/19/20 16:49: Lactic Acid 1.4 11/19/20 16:49: Procalcitonin 0.10 H 11/19/20 16:49: Phosphorus 3.7, Magnesium 1.7, Ferritin 181 11/19/20 16:49: B-Natriuretic Peptide 23.2 11/20/20 03:40: WBC 9.0, RBC 4.54, Hgb 13.4, Hct 39.7, MCV 87.4, MCH 29.5, MCHC 33.8, RDW Std Deviation 40.0, RDW Coeff of Kyle 13.2, Plt Count 443, MPV 10.2, Immature Gran % (Auto) 0.900, Neut % (Auto) 85.7 H, Lymph % (Auto) 9.5 L, [place] % (Auto) 3.5, Eos % (Auto) 0.0, Baso % (Auto) 0.4, Absolute Neuts (auto) 7.7, Absolute Lymphs (auto) 0.85, Nucleated RBC % 0 11/20/20 03:40: Sodium 139, Potassium 4.4, Chloride 102, Carbon Dioxide 30.0, Anion Gap 7, BUN 16, Creatinine 0.81, Estim Creat Clear Calc 70.93, Est GFR (MDRD) Af Amer 93, Est GFR (MDRD) Non-Af 77, BUN/Creatinine Ratio 19.8, Glucose 143 H, Calcium 9.3, Total Bilirubin 0.50, AST 22, ALT 37, Alkaline Phosphatase 266 H, Total Protein 7.8, Albumin 2.4 L, Globulin 5.4 H, Albumin/Globulin Ratio 0.4 L Micro: Microbiology 11/19/20 21:15 Urine, Random Legionella Antigen - Final 11/19/20 21:15 Urine, Random Streptococcus pneumoniae Antigen (M - Final 11/19/20 18:07 Mucosa - Nasopharyngeal Respiratory Panel (PCR) - Final Adenovirus Radiology Impression Chest CTA 11/19/20 16:57 IMPRESSION: No acute pulmonary emboli to segmental level. Diffuse bilateral airspace opacities consistent with Covid pneumonia. Electronically Signed: Perfecto Sevilla MD at 18:25 EDT Tel , Service support , Charges/Coding Visit Charges Inpatient E&M: 82480 Init Hosp L3
[2020-11-20 08:38] LABS: Hemoglobin A1c 5.8 % (3.8-5.6)
[2020-11-20] MEDS: dexAMETHasone 4 MG/ML Vial 6 MG IV (09:52)
[2020-11-20] MEDS: Losartan Potassium 100 MG Tablet PO (09:52)
[2020-11-20] MEDS: Aspirin E.C. 81 MG Tablet PO (09:53)
[2020-11-20] MEDS: Pantoprazole Sodium 20 MG Tablet PO (09:53)
[2020-11-20] MEDS: Ascorbic Acid 500 MG Tablet PO ×2 (09:53→23:21)
[2020-11-20] MEDS: hydroCHLOROthiazide 25 MG Tablet PO (09:53)
[2020-11-20] MEDS: Metoprolol Tartrate 50 MG Tablet PO ×2 (09:53→22:58)
[2020-11-20] MEDS: Enoxaparin 30 MG/0.3 ML Syringe SC ×2 (09:53→22:56)
--- NOTE | 2020-11-20 11:25 | CASEMGMT ---
RN CM [employer] CM to room to meet with patient for initial transition planning/care coordination assessment. SHELLIE WILLIS introduced self and role at [facility]. Pt voices understanding and consents to assessment at this time. Pt sittng in chair in room no distress at this time. Pt is A/O at this time and answers all questions appropriately. Care providers, pharmacy, and demographics verified/updated at this time. COVID testing completed @ [facility] in [place] 10/30/20 PCP: Dr Bobo Specialists:none Preferred Pharmacy: [facility] Retail Insurance: None. Pt just started a job mid Oct and there is a 60-day waiting period for insurance benefits to begin. Prescription Benefit: none Living Will/HPOA: Pt does not currently have LW/HCPOA. Provided information. 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 Independent. Transportation: Pt states drives self and states no transportation concerns at this time. also drives DME:Has pulse ox. No home O2. Discussed possible need for home O2 @ dc and made aware approx cost [id number] fwCor a month supply is $200. Pt states this is affordable. Pt given list of local DME co's, aware [facility] is affiliated w/[facility] and she chooses [facility] HHC/SNF: No hx of either. No needs identified. Pt wishes to return home and states has no concerns with going home at time of discharge. CM to follow for home oxygen needs and any further discharge planning/needs. Pt voices no further concerns/needs at this time. Advised pt to ask for CM if any further questions/concerns/needs arise. Voices understanding. PLAN: Home. Follow for any Home O2 needs. Pt is self pay but states will be able to afford paying for O2 [id number]. No prescription coverage. Follow for cost/affordability of new scripts @ d/c Estefany MCMAHONN SHELLIE WILLIS
--- NOTE | 2020-11-20 12:27 | PN.HOSP_ITS ---
Subjective Subjective Feels well despite increased oxygen requirements. Objective Data Objective Data Vital Signs: Vital Signs Temp Pulse Resp BP Pulse Ox 35.8 C L 105 H 30 H 145/86 H 89 11/20/20 10:00 11/20/20 10:00 11/20/20 10:00 11/20/20 10:00 11/20/20 10:00 Oxygen Flow Rate (L/min) 13 Oxygen Delivery Method Nasal Cannula Weight: 93.6 kg Body Mass Index (BMI) 32.3 Intake & Output: Intake and Output for Last 24 Hours 11/18/20 11/19/20 11/20/20 23:59 23:59 23:59 Intake Total 500 / 500 240 / 240 Output Total 900 / 1300 1050 / 1050 Balance -400 / -800 -810 / -810 Lab / Micro Data Result Diagrams: 11/20/20 03:40 11/20/20 03:40 Labs: Laboratory Results - last 24 hr 11/19/20 16:49: WBC 10.0, RBC 4.43, Hgb 13.2, Hct 38.9, MCV 87.8, MCH 29.8, MCHC 33.9, RDW Std Deviation 40.1, RDW Coeff of Kyle 13.1, Plt Count 429, MPV 10.2, Immature Gran % (Auto) 1.000 H, Neut % (Auto) 76.7 H, Lymph % (Auto) 10.5 L, [place] % (Auto) 9.8, Eos % (Auto) 1.6, Baso % (Auto) 0.4, Absolute Neuts (auto) 7.7, Absolute Lymphs (auto) 1.05, Nucleated RBC % 0 11/19/20 16:49: Fibrinogen 624 H, D-Dimer Quant (PE/DVT) 0.63 H* 11/19/20 16:49: Sodium 139, Potassium 3.8, Chloride 106, Carbon Dioxide 25.0, Anion Gap 8, BUN 16, Creatinine 1.06 H, Estim Creat Clear Calc 54.20, Est GFR (MDRD) Af Amer 68, Est GFR (MDRD) Non-Af 56 L, BUN/Creatinine Ratio 15.1, Glucose 152 H, Calcium 9.0, Total Bilirubin 0.40, AST 23, ALT 40, Alkaline Phosphatase 268 H, Lactate Dehydrogenase 321 H, Troponin I High Sens 17, C-React Prot Ext Range 14.60 H, Total Protein 7.4, Albumin 2.3 L, Globulin 5.1 H, Albumin/Globulin Ratio 0.5 L 11/19/20 16:49: Lactic Acid 1.4 11/19/20 16:49: Procalcitonin 0.10 H 11/19/20 16:49: Phosphorus 3.7, Magnesium 1.7, Ferritin 181 11/19/20 16:49: B-Natriuretic Peptide 23.2 11/20/20 03:40: WBC 9.0, RBC 4.54, Hgb 13.4, Hct 39.7, MCV 87.4, MCH 29.5, MCHC 33.8, RDW Std Deviation 40.0, RDW Coeff of Kyle 13.2, Plt Count 443, MPV 10.2, Immature Gran % (Auto) 0.900, Neut % (Auto) 85.7 H, Lymph % (Auto) 9.5 L, [place] % (Auto) 3.5, Eos % (Auto) 0.0, Baso % (Auto) 0.4, Absolute Neuts (auto) 7.7, Absolute Lymphs (auto) 0.85, Nucleated RBC % 0 11/20/20 03:40: Sodium 139, Potassium 4.4, Chloride 102, Carbon Dioxide 30.0, Anion Gap 7, BUN 16, Creatinine 0.81, Estim Creat Clear Calc 70.93, Est GFR (MDRD) Af Amer 93, Est GFR (MDRD) Non-Af 77, BUN/Creatinine Ratio 19.8, Glucose 143 H, Calcium 9.3, Total Bilirubin 0.50, AST 22, ALT 37, Alkaline Phosphatase 266 H, Total Protein 7.8, Albumin 2.4 L, Globulin 5.4 H, Albumin/Globulin Ratio 0.4 L 11/20/20 03:40: Hemoglobin A1c 5.8 H Micro: Microbiology 11/19/20 21:15 Urine, Random Legionella Antigen - Final 11/19/20 21:15 Urine, Random Streptococcus pneumoniae Antigen (M - Final 11/19/20 18:07 Mucosa - Nasopharyngeal Respiratory Panel (PCR) - Final Adenovirus Radiography Diagnostic Testing: Radiology Impression Chest CTA 11/19/20 16:57 IMPRESSION: No acute pulmonary emboli to segmental level. Diffuse bilateral airspace opacities consistent with Covid pneumonia. Electronically Signed: Perfecto Sevilla MD at 18:25 EDT Tel , Service support , Physical Exam Const alert Resp normal respiratory effort, no retractions, no use of accessory muscles and clear to auscultation bilaterally Cardio regular rate, regular rhythm, S1 normal heart sound and S2 normal heart sound GI normal to inspection, nondistended, normoactive bowel sounds, soft to palpation, non-tender and non-distended Neuro Sensorium / Orientation: awake and alert Assessment & Plan Assessment/Plan (1) Acute hypoxemic respiratory failure due to COVID-19: (2) Pneumonia due to COVID-19 virus: PLAN: 1. acute hypoxic respiratory failure * 2/2 COVID 19 and likely to a lesser degree, adenovirus * increased oxygen requirements today, monitor for progression * legionella and strep antigen negative * check sputum culture * did receive furosemide 2. COVID 19 * unvaccinated * onset 10/29, quarantine completed (continued here for the time being given the adenovirus) * not a candidate for remdesivir * continue dexamethasone through the 18t 3. Adenovirus * unclear impact this having on patient's respiratory status * not a candidate for treatment (reserved typical for BM xplant patients) 4. HTN * stable * continue losartan, metoprolol 5. VTE prophylaxis: LMWH Transfer to PCU. Charges/Coding Visit Charges Inpatient E&M: 22256 Subs Hosp L2
[2020-11-21] VITALS (12 sets, daily range): BP systolic 121–140; BP diastolic 71–91; PULSE 67–98; RESP 18–24; TEMP 36.2–36.4; O2SAT 92–96
[2020-11-21 06:15] LABS: ALB/GLOB Ratio 0.4 RATIO (0.9-2.4); AST(SGOT) 23 U/L (15-37); Alanine Aminotransfer ALT/SGPT 34 U/L (13-56); Albumin, Serum 2.2 g/dL (3.2-5.0); Alkaline Phosphatase 230 U/L (45-117); Anion Gap 6 (5-15); BUN 32 mg/dL (7-18); BUN/Creat Ratio 44.4 RATIO (10-20); Calcium,Total 9.7 mg/dL (8.5-10.1); Chloride 102 mmol/L (98-107); Creatinine, Serum 0.72 mg/dL (0.55-1.02); EST Glomerular Filtration Rate 88 mL/min (>60); Est Glom Filt Rate - Afr Amer 106 mL/min (>60); Estimated Creatinine Clearance 79.79 ml/min; Globulin 5.1 g/dL (2.2-4.2); Glucose 113 mg/dL (74-106); Potassium 3.9 mmol/L (3.5-5.1); Protein, Total 7.3 g/dL (6.4-8.2); Sodium Level 137 mmol/L (136-145)
--- NOTE | 2020-11-21 07:28 | PN.CC_ITS ---
Assessment & Plan Assessment/Plan (1) Acute hypoxemic respiratory failure due to COVID-19: (2) Adenoviral bronchitis: PLAN: RECOMMENDATIONS: 1. Continue Decadron as ordered to complete 10 days of therapy. 2. Continue prophylactic Lovenox. 3. As needed IV diuretic therapy to maintain euvolemic state. 4. Encourage incentive spirometer use and mobilize patient as tolerated. 5. Wean supplemental oxygen to maintain saturations at or above 90%. 6. Will defer need for baricitinib to ID. IMPRESSIONS: 1. Acute hypoxemic respiratory failure secondary to combined COVID- 19/adenovirus infection The patient experienced symptom onset sometime around October 29, having tested positive for coronavirus approximately 1 week later. She has had progressive dyspnea and hypoxemia. In addition to the aforementioned, the patient also tested positive for adenovirus. CTA chest was negative for pulmonary embolism. The patient is outside of the window for remdesivir. She will be continued on Decadron and prophylactic Lovenox as ordered. Diuretic therapy will be utilized as needed to maintain euvolemic state. Infectious diseases has been consulted for consideration of baricitinib. 2. History of heart failure with preserved ejection fraction Surface echocardiogram from 2018 demonstrated stage I diastolic dysfunction and a right ventricular systolic pressure of 36 mmHg. It is reasonable to continue as needed diuretic therapy to maintain euvolemic state. 3. Hypertension/hyperlipidemia/obesity/GERD/anxiety/depression Complicates care, management, recovery and prognosis. Continue home medications as indicated. This note was generated with [employer] dictation software. It may contain incorrect words, spelling, and punctuation that were not noted in checking the note before signing. Subjective Subjective The patient was seen and examined at the bedside this morning. Events from the last 24 hours have been reviewed. The patient is currently afebrile, hemodynamically stable and maintaining appropriate oxygen saturations on 15 L/min via nasal cannula. She is currently documented to be overall net -500 mL for the hospital admission. Liver and renal function are stable. The patient remains on prophylactic Lovenox and Decadron. Objective Data Objective Data The patient's most recent lab work, culture data and imaging studies have all been personally reviewed. Respiratory viral panel was positive for adenovirus. Strep and urine Legionella antigens were negative. Vital Signs: Vital Signs Temp Pulse Resp BP Pulse Ox 97.3 F L 72 24 H 140/71 H 96 11/21/20 04:01 11/21/20 04:01 11/21/20 04:01 11/21/20 04:01 11/21/20 04:01 Oxygen Flow Rate (L/min) 15 Oxygen Delivery Method Nasal Cannula Weight: 92.3 kg Body Mass Index (BMI) 32.3 Intake & Output: Intake and Output for Last 24 Hours 11/19/20 11/20/20 11/21/20 23:59 23:59 23:59 Intake Total 500 / 500 960 / 960 Output Total 900 / 1300 1050 / 1050 Balance -400 / -800 -90 / -90 Lab / Micro Data Attestation: I reviewed the patient's lab results. Result Diagrams: 11/20/20 03:40 11/21/20 04:55 Labs: Laboratory Results - last 24 hr 11/20/20 03:40: Hemoglobin A1c 5.8 H 11/21/20 04:55: Sodium 137, Potassium 3.9, Chloride 102, Carbon Dioxide 29.0, Anion Gap 6, BUN 32 H, Creatinine 0.72, Estim Creat Clear Calc 79.79, Est GFR (MDRD) Af Amer 106, Est GFR (MDRD) Non-Af 88, BUN/Creatinine Ratio 44.4 H, Glucose 113 H, Calcium 9.7, Total Bilirubin 0.50, AST 23, ALT 34, Alkaline Phosphatase 230 H, Total Protein 7.3, Albumin 2.2 L, Globulin 5.1 H, Albumin/Globulin Ratio 0.4 L Micro: Microbiology 11/19/20 21:15 Urine, Random Legionella Antigen - Final 11/19/20 21:15 Urine, Random Streptococcus pneumoniae Antigen (M - Final 11/19/20 18:07 Mucosa - Nasopharyngeal Respiratory Panel (PCR) - Final Adenovirus Physical Exam Const alert and no apparent distress General Appearance: cooperative Nutritional Appearance: obese HEENT normocephalic, head/scalp atraumatic and moist oral mucous membranes Eyes PERRL, EOMs intact bilaterally and conjunctivae normal Neck supple General: trachea midline Chest inspection of chest normal Resp Effort and Inspection: able to speak in complete sentences and tachypneic Auscultation: diminished lung sounds; Negative for rales, rhonchi or wheezes Cardio regular rate and regular rhythm GI normal to inspection, nondistended, normoactive bowel sounds Extremity no clubbing, cyanosis or edema Skin no rashes or lesions noted Neuro CN's II-XII intact bilaterally, moves all extremities and no focal motor deficits Psych cooperative and affect normal Charges/Coding Visit Charges Inpatient E&M: 14538 Subs Hosp L2
--- NOTE | 2020-11-21 08:15 | PN.HOSP_ITS ---
Subjective Subjective Patient mild short of breath. On 15 L of oxygen. Objective Data Objective Data Vital Signs: Vital Signs Temp Pulse Resp BP Pulse Ox 97.3 F L 67 24 H 140/71 H 96 11/21/20 04:01 11/21/20 07:00 11/21/20 04:01 11/21/20 04:01 11/21/20 04:01 Oxygen Flow Rate (L/min) 15 Oxygen Delivery Method Nasal Cannula Weight: 203 lb 7.787 oz Body Mass Index (BMI) 32.3 Intake & Output: Intake and Output for Last 24 Hours 11/19/20 11/20/20 11/21/20 23:59 23:59 23:59 Intake Total 500 / 500 960 / 960 Output Total 900 / 1300 1050 / 1050 Balance -400 / -800 -90 / -90 Lab / Micro Data Result Diagrams: 11/20/20 03:40 11/21/20 04:55 Labs: Laboratory Results - last 24 hr 11/20/20 03:40: Hemoglobin A1c 5.8 H 11/21/20 04:55: Sodium 137, Potassium 3.9, Chloride 102, Carbon Dioxide 29.0, Anion Gap 6, BUN 32 H, Creatinine 0.72, Estim Creat Clear Calc 79.79, Est GFR (MDRD) Af Amer 106, Est GFR (MDRD) Non-Af 88, BUN/Creatinine Ratio 44.4 H, Glucose 113 H, Calcium 9.7, Total Bilirubin 0.50, AST 23, ALT 34, Alkaline Phosphatase 230 H, Total Protein 7.3, Albumin 2.2 L, Globulin 5.1 H, Albumin/Globulin Ratio 0.4 L Micro: Microbiology 11/19/20 21:15 Urine, Random Legionella Antigen - Final 11/19/20 21:15 Urine, Random Streptococcus pneumoniae Antigen (M - Final 11/19/20 18:07 Mucosa - Nasopharyngeal Respiratory Panel (PCR) - Final Adenovirus Physical Exam Narrative Patient is short of breath. Mild cough. General: Alert, Oriented x3, Cooperative HEENT: Atraumatic, PERRLA, EOMI, Normocephalic Oral: No Gingival or Mucosal Lesions/ Ulcerations Neck: Supple, No JVD, Negative Carotid Bruits Lungs: Air entry diminished in bilateral lung bases. Severe hypoxia. Tachypnea. Dyspnea at rest. No crepitation/rhonchi Cardiovascular: Regular rate, Regular Rhythm, Normal S1, Normal S2, No murmurs Abdomen: Bowel Sounds Present, Soft, Non Tender, Non-Distended : No renal angle tenderness. No suprapubic tenderness. Extremities: No edema, Capillary Refill Less than 3 Seconds Skin: No rashes, No breakdown Musculoskeletal: No Tenderness to Palpation of Joints or Extremities Neurological: Cranial nerves II-XII grossly intact, DTR 2+/4 and Symmetrical, Neuro grossly intact Psych/Mental Status: Normal Affect, Appropriate. Assessment & Plan Assessment/Plan (1) Acute hypoxemic respiratory failure due to COVID-19: (2) Pneumonia due to COVID-19 virus: PLAN: 1. acute hypoxic respiratory failure due to bilateral COVID-19 pneumonia and adenovirus: Respiratory panel is positive for adenovirus. On 15 L of oxygen. Urinary antigens are negative. Furosemide as needed 2. COVID 19 * unvaccinated * onset 10/29, quarantine completed (continued here for the time being given the adenovirus) * not a candidate for remdesivir * continue dexamethasone through the 18t 3. HTN * stable * continue losartan, metoprolol 5. VTE prophylaxis: LMWH Transfer to PCU. Charges/Coding Visit Charges Inpatient E&M: 37854 Subs Hosp L2
[2020-11-21] MEDS: Metoprolol Tartrate 50 MG Tablet PO ×2 (09:42→20:25)
[2020-11-21] MEDS: Losartan Potassium 100 MG Tablet PO (09:42)
[2020-11-21] MEDS: hydroCHLOROthiazide 25 MG Tablet PO (09:42)
[2020-11-21] MEDS: Pantoprazole Sodium 20 MG Tablet PO (09:43)
[2020-11-21] MEDS: Ascorbic Acid 500 MG Tablet PO ×2 (09:43→20:25)
[2020-11-21] MEDS: Aspirin E.C. 81 MG Tablet PO (09:43)
[2020-11-21] MEDS: Enoxaparin 30 MG/0.3 ML Syringe SC ×2 (09:44→20:44)
[2020-11-21] MEDS: dexAMETHasone 4 MG/ML Vial 6 MG IV (10:10)
[2020-11-21] MEDS: 0.9% Saline Lock 10 ML Syringe IV (10:11)
[2020-11-21] MEDS: Furosemide 40 MG/4 ML Vial IV (10:11)
[2020-11-22] VITALS (14 sets, daily range): BP systolic 116–134; BP diastolic 72–83; PULSE 72–86; RESP 18; TEMP 35.9–36.7; O2SAT 91–96
[2020-11-22] MEDS: hydroCHLOROthiazide 25 MG Tablet PO (08:29)
[2020-11-22] MEDS: Metoprolol Tartrate 50 MG Tablet PO ×2 (08:29→21:41)
[2020-11-22] MEDS: Ascorbic Acid 500 MG Tablet PO ×2 (08:29→21:41)
[2020-11-22] MEDS: Pantoprazole Sodium 20 MG Tablet PO (08:29)
[2020-11-22] MEDS: Losartan Potassium 100 MG Tablet PO (08:29)
[2020-11-22] MEDS: Aspirin E.C. 81 MG Tablet PO (08:29)
[2020-11-22] MEDS: dexAMETHasone 4 MG/ML Vial 6 MG IV (08:29)
[2020-11-22] MEDS: 0.9% Saline Lock 10 ML Syringe IV (08:30)
[2020-11-22] MEDS: Enoxaparin 30 MG/0.3 ML Syringe SC ×2 (08:35→21:41)
[2020-11-22 09:00] LABS: Anion Gap 7 (5-15); BUN 36 mg/dL (7-18); Calcium,Total 10.1 mg/dL (8.5-10.1); Chloride 100 mmol/L (98-107); Creatinine, Serum 0.78 mg/dL (0.55-1.02); EST Glomerular Filtration Rate 79 mL/min (>60); Est Glom Filt Rate - Afr Amer 96 mL/min (>60); Estimated Creatinine Clearance 73.65 ml/min; Glucose 111 mg/dL (74-106); Sodium Level 135 mmol/L (136-145)
--- NOTE | 2020-11-22 14:07 | PCM.PN.INT ---
Assessment & Plan Assessment/Plan (1) Acute hypoxemic respiratory failure due to COVID-19: (2) Adenoviral bronchitis: PLAN: RECOMMENDATIONS: 1. Continue Decadron as ordered to complete 10 days of therapy. 2. Continue prophylactic Lovenox. 3. As needed IV diuretic therapy to maintain euvolemic state. 4. Encourage incentive spirometer use and mobilize patient as tolerated. 5. Wean supplemental oxygen to maintain saturations at or above 90%. 6. Outpatient work-up for obstructive lung disease following discharge IMPRESSIONS: 1. Acute hypoxemic respiratory failure secondary to combined COVID-19/adenovirus infection The patient experienced symptom onset sometime around October 29, having tested positive for coronavirus approximately 1 week later. She has had progressive dyspnea and hypoxemia. In addition to the aforementioned, the patient also tested positive for adenovirus. CTA chest was negative for pulmonary embolism. The patient is outside of the window for remdesivir and baricitinib. She will be continued on Decadron and prophylactic Lovenox as ordered. Diuretic therapy will be utilized as needed to maintain euvolemic state. Continue to wean oxygen as tolerated. Anticipate discharge when able to tolerate 6 L or less. Patient should have an outpatient work-up for obstructive lung disease given severity of hypoxia. 2. History of heart failure with preserved ejection fraction Surface echocardiogram from 2018 demonstrated stage I diastolic dysfunction and a right ventricular systolic pressure of 36 mmHg. It is reasonable to continue as needed diuretic therapy to maintain euvolemic state. Patient may benefit from outpatient sleep work-up 3. Hypertension/hyperlipidemia/obesity/GERD/anxiety/depression Complicates care, management, recovery and prognosis. Continue home medications as indicated. This note was generated with [employer] dictation software. It may contain incorrect words, spelling, and punctuation that were not noted in checking the note before signing. Subjective Subjective Patient did okay overnight. No acute issues were reported. Patient overall feels subjectively improved compared to yesterday. Patient states that she feels more energy today compared to yesterday. Patient is still having a productive cough, but denies any hemoptysis. Patient reports she has had sinus congestion and shortness of breath on exertion for several years, but is never seen a biodiesel engine specialist for a work-up. Patient does not use any inhalers at baseline. Objective Data Objective Data Vital Signs: Vital Signs Temp Pulse Resp BP Pulse Ox 36.6 C 85 18 120/77 92 11/22/20 11:48 11/22/20 11:48 11/22/20 11:48 11/22/20 11:48 11/22/20 11:58 Oxygen Flow Rate (L/min) 8 Oxygen Delivery Method Nasal Cannula Weight: 93 kg Body Mass Index (BMI) 32.3 Intake & Output: Intake and Output for Last 24 Hours 11/20/20 11/21/20 11/22/20 23:59 23:59 23:59 Intake Total 960 / 960 480 / 720 900 / 900 Output Total 1050 / 1050 Balance -90 / -90 480 / 720 900 / 900 Lab / Micro Data Result Diagrams: 11/20/20 03:40 11/22/20 08:10 Labs: Laboratory Results - last 24 hr 11/22/20 08:10: Sodium 135 L, Potassium 4.0, Chloride 100, Carbon Dioxide 28.0, Anion Gap 7, BUN 36 H, Creatinine 0.78, Estim Creat Clear Calc 73.65, Est GFR (MDRD) Af Amer 96, Est GFR (MDRD) Non-Af 79, BUN/Creatinine Ratio 46.0 H, Glucose 111 H, Calcium 10.1 Micro: Microbiology 11/20/20 21:22 Sputum, Expectorated/Coughed Gram Stain - Final 11/20/20 21:22 Sputum, Expectorated/Coughed Respiratory Culture - Preliminary Appears to be normal respiratory siomara. Further studies to follow. 11/19/20 16:49 Blood Culture (Wb) - Left Hand Blood Culture - Preliminary No growth in 48 hours. 11/19/20 17:16 Blood Culture (Wb) - No Site/Description Given Blood Culture - Preliminary No growth in 48 hours. 11/19/20 21:15 Urine, Random Legionella Antigen - Final 11/19/20 21:15 Urine, Random Streptococcus pneumoniae Antigen (M - Final 11/19/20 18:07 Mucosa - Nasopharyngeal Respiratory Panel (PCR) - Final Adenovirus Physical Exam Const alert and no apparent distress Constitutional Narrative: No conversational dyspnea General Appearance: cooperative Nutritional Appearance: obese HEENT normocephalic, head/scalp atraumatic and moist oral mucous membranes Eyes PERRL, EOMs intact bilaterally and conjunctivae normal Neck supple General: trachea midline Chest inspection of chest normal Resp Effort and Inspection: able to speak in complete sentences Auscultation: diminished lung sounds; Negative for rales, rhonchi or wheezes Cardio regular rate and regular rhythm GI normal to inspection, nondistended, normoactive bowel sounds Extremity no clubbing, cyanosis or edema Skin no rashes or lesions noted Neuro CN's II-XII intact bilaterally, moves all extremities and no focal motor deficits Psych cooperative and affect normal Charges/Coding Visit Charges Inpatient E&M: 47500 Subs Hosp L3
--- NOTE | 2020-11-22 14:15 | PCM.CONS.GEN ---
Assessment & Plan Assessment/Plan (1) Adenoviral bronchitis: (2) Pneumonia due to COVID-19 virus: PLAN: Covid and adenovirus. Unvaccinated, encouraged vaccine. In iso. On dex. Not candidate for remdesivir or baricitinib at this point. Will follow as needed, thank you (3) COVID-19: HPI Consult Data Date of Consult: 11/22/20 HPI Narrative HPI Narrative: BJ ROSADO, is a 60 F who presented with sx starting 10/29, was exposed around 10/26. Mild fever, chills, congestion, dyspnea, cough, change in taste/smell. Unvaccinated. mildly ill, improving. She felt better, then sx started to worsen again. Came to ED 11/20, started on dex, now adenovirus (+). Feeling better. Full ROS performed and neg except as noted above. [facility] Medical History Anxiety Depression GERD (gastroesophageal reflux disease) HTN (hypertension) Home Medications ascorbic acid (vitamin C) 500 mg PO DAILY 11/19/20 [History Last Taken 11/18/20] aspirin 81 mg PO DAILY 11/19/20 [History Last Taken 1 Week Ago ~11/12/20] cholecalciferol (vitamin D3) 50 mcg PO DAILY 11/19/20 [History Last Taken 11/18/20] hydrochlorothiazide 25 mg PO DAILY 11/19/20 [History Last Taken 1 Week Ago ~11/12/20] losartan 100 mg PO DAILY 11/19/20 [History Last Taken 1 Week Ago ~11/12/20] omeprazole 10 mg PO DAILY 11/19/20 [History Last Taken 1 Week Ago ~11/12/20] zinc 50 mg PO DAILY 11/19/20 [History Last Taken 11/18/20] Allergy/AdvReac Type Severity Reaction Status Date / Time No Known Allergies Allergy Verified 11/19/20 16:39 Family History Mother CVA (cerebral vascular accident) Diabetes Hypertension Heart disease Father Hypertension Surgical History No history of previous surgery Social History household members: spouse Smoking Status: Never smoker alcohol intake: never substance use type: does not use Physical Exam Const alert, oriented x3 and no apparent distress General Appearance: cooperative Exam Limitations: no limitations HEENT normocephalic and head/scalp atraumatic Eyes PERRL and EOMs intact bilaterally Neck supple and No nodes Resp Auscultation: diminished lung sounds Cardio regular rate and regular rhythm GI normal to inspection, nondistended, normoactive bowel sounds Extremity no clubbing, cyanosis or edema Skin no rashes or lesions noted Neuro CN's II-XII intact bilaterally Lab / Micro Data Result Diagrams: 11/20/20 03:40 11/22/20 08:10 Labs: Laboratory Results - last 24 hr 11/22/20 08:10: Sodium 135 L, Potassium 4.0, Chloride 100, Carbon Dioxide 28.0, Anion Gap 7, BUN 36 H, Creatinine 0.78, Estim Creat Clear Calc 73.65, Est GFR (MDRD) Af Amer 96, Est GFR (MDRD) Non-Af 79, BUN/Creatinine Ratio 46.0 H, Glucose 111 H, Calcium 10.1 Micro: Microbiology 11/20/20 21:22 Sputum, Expectorated/Coughed Gram Stain - Final 11/20/20 21:22 Sputum, Expectorated/Coughed Respiratory Culture - Preliminary Appears to be normal respiratory siomara. Further studies to follow. 11/19/20 16:49 Blood Culture (Wb) - Left Hand Blood Culture - Preliminary No growth in 48 hours. 11/19/20 17:16 Blood Culture (Wb) - No Site/Description Given Blood Culture - Preliminary No growth in 48 hours.
--- NOTE | 2020-11-22 16:46 | PN.HOSP_ITS ---
Subjective Subjective Patient is on 8 L of oxygen down from 12 L yesterday. Actively doing incentive spirometry, prone positioning and Pep. Denies dyspnea. Objective Data Objective Data Vital Signs: Vital Signs Temp Pulse Resp BP Pulse Ox 97.9 F 85 18 120/77 92 11/22/20 11:48 11/22/20 11:48 11/22/20 11:48 11/22/20 11:48 11/22/20 11:58 Oxygen Flow Rate (L/min) 8 Oxygen Delivery Method Nasal Cannula Weight: 205 lb 0.478 oz Body Mass Index (BMI) 32.3 Intake & Output: Intake and Output for Last 24 Hours 11/20/20 11/21/20 11/22/20 23:59 23:59 23:59 Intake Total 960 / 960 480 / 720 900 / 900 Output Total 1050 / 1050 Balance -90 / -90 480 / 720 900 / 900 Lab / Micro Data Result Diagrams: 11/20/20 03:40 11/22/20 08:10 Labs: Laboratory Results - last 24 hr 11/22/20 08:10: Sodium 135 L, Potassium 4.0, Chloride 100, Carbon Dioxide 28.0, Anion Gap 7, BUN 36 H, Creatinine 0.78, Estim Creat Clear Calc 73.65, Est GFR (MDRD) Af Amer 96, Est GFR (MDRD) Non-Af 79, BUN/Creatinine Ratio 46.0 H, Glucose 111 H, Calcium 10.1 Micro: Microbiology 11/20/20 21:22 Sputum, Expectorated/Coughed Gram Stain - Final 11/20/20 21:22 Sputum, Expectorated/Coughed Respiratory Culture - Preliminary Appears to be normal respiratory siomara. Further studies to follow. 11/19/20 16:49 Blood Culture (Wb) - Left Hand Blood Culture - Preliminary No growth in 48 hours. 11/19/20 17:16 Blood Culture (Wb) - No Site/Description Given Blood Culture - Preliminary No growth in 48 hours. 11/19/20 21:15 Urine, Random Legionella Antigen - Final 11/19/20 21:15 Urine, Random Streptococcus pneumoniae Antigen (M - Final 11/19/20 18:07 Mucosa - Nasopharyngeal Respiratory Panel (PCR) - Final Adenovirus Physical Exam Narrative General: Alert, Oriented x3, Cooperative HEENT: Atraumatic, PERRLA, EOMI, Normocephalic Oral: No Gingival or Mucosal Lesions/ Ulcerations Neck: Supple, No JVD, Negative Carotid Bruits Lungs: Air entry diminished in bilateral lung bases. Hypoxia. No crepitation/rhonchi Cardiovascular: Regular rate, Regular Rhythm, Normal S1, Normal S2, No murmurs Abdomen: Bowel Sounds Present, Soft, Non Tender, Non-Distended : No renal angle tenderness. No suprapubic tenderness. Extremities: No edema, Capillary Refill Less than 3 Seconds Skin: No rashes, No breakdown Musculoskeletal: No Tenderness to Palpation of Joints or Extremities Neurological: Cranial nerves II-XII grossly intact, DTR 2+/4 and Symmetrical, Neuro grossly intact Psych/Mental Status: Normal Affect, Appropriate. Assessment & Plan Assessment/Plan (1) Acute hypoxemic respiratory failure due to COVID-19: (2) Pneumonia due to COVID-19 virus: PLAN: 1. acute hypoxic respiratory failure due to bilateral COVID-19 pneumonia and adenovirus: Respiratory panel is positive for adenovirus. On 15 L of oxygen. Urinary antigens are negative. Furosemide as needed 11/18: Patient oxygenation improved from 12 to 8 L. Encouraged to continue incentive spirometry Pep. Plan of care discussed with the patient's near the bedside. 2. COVID 19 * unvaccinated * onset 10/29, quarantine completed (continued here for the time being given the adenovirus) * not a candidate for remdesivir * continue dexamethasone through the 18t 3. HTN * stable * continue losartan, metoprolol 5. VTE prophylaxis: LMWH Transfer to PCU. Charges/Coding Visit Charges Inpatient E&M: 18260 Subs Hosp L2
[2020-11-23] VITALS (14 sets, daily range): BP systolic 120–127; BP diastolic 75–90; PULSE 66–101; RESP 18–20; TEMP 36.2–36.8; O2SAT 92–94
[2020-11-23 08:20] LABS: Anion Gap 7 (5-15); BUN 34 mg/dL (7-18); BUN/Creat Ratio 47.5 RATIO (10-20); Calcium,Total 9.9 mg/dL (8.5-10.1); Chloride 102 mmol/L (98-107); Creatinine, Serum 0.72 mg/dL (0.55-1.02); EST Glomerular Filtration Rate 88 mL/min (>60); Est Glom Filt Rate - Afr Amer 107 mL/min (>60); Estimated Creatinine Clearance 79.79 ml/min; Glucose 95 mg/dL (74-106); Potassium 4.3 mmol/L (3.5-5.1); Sodium Level 135 mmol/L (136-145)
[2020-11-23] MEDS: 0.9% Saline Lock 10 ML Syringe IV (10:02)
[2020-11-23] MEDS: Furosemide 40 MG/4 ML Vial IV (10:02)
[2020-11-23] MEDS: Aspirin E.C. 81 MG Tablet PO (10:07)
[2020-11-23] MEDS: Metoprolol Tartrate 50 MG Tablet PO ×2 (10:07→21:02)
[2020-11-23] MEDS: Ascorbic Acid 500 MG Tablet PO ×2 (10:07→21:02)
[2020-11-23] MEDS: Pantoprazole Sodium 20 MG Tablet PO (10:07)
[2020-11-23] MEDS: dexAMETHasone 4 MG/ML Vial 6 MG IV (10:07)
[2020-11-23] MEDS: hydroCHLOROthiazide 25 MG Tablet PO (10:07)
[2020-11-23] MEDS: Enoxaparin 30 MG/0.3 ML Syringe SC ×2 (10:07→21:02)
[2020-11-23] MEDS: Losartan Potassium 100 MG Tablet PO (10:07)
--- NOTE | 2020-11-23 10:32 | PN.CC_ITS ---
Assessment & Plan Assessment/Plan (1) Acute hypoxemic respiratory failure due to COVID-19: (2) Adenoviral bronchitis: PLAN: RECOMMENDATIONS: 1. Continue Decadron as ordered to complete 10 days of therapy. 2. Continue prophylactic Lovenox. 3. As needed IV diuretic therapy to maintain euvolemic state. Challenge today 4. Encourage incentive spirometer use and mobilize patient as tolerated. 5. Wean supplemental oxygen to maintain saturations at or above 90%. 6. Outpatient work-up for obstructive lung disease following discharge 7. Possible discharge when patient able to tolerate 6 L or less with ambulation IMPRESSIONS: 1. Acute hypoxemic respiratory failure secondary to combined COVID- 19/adenovirus infection The patient experienced symptom onset sometime around October 29, having tested positive for coronavirus approximately 1 week later. She has had progressive dyspnea and hypoxemia. In addition to the aforementioned, the patient also tested positive for adenovirus. CTA chest was negative for pulmona ry embolism. The patient is outside of the window for remdesivir and baricitinib. She will be continued on Decadron and prophylactic Lovenox as ordered. Diuretic therapy will be utilized as needed to maintain euvolemic state-challenge today. Continue to wean oxygen as tolerated. Anticipate disc harge when able to tolerate 6 L or less (may be the next 24 to 48 hours). Patient should have an outpatient work-up for obstructive lung disease given severity of hypoxia. 2. History of heart failure with preserved ejection fraction Surface echocardiogram from 2018 demonstrated stage I diastolic dysfunction and a right ventricular systolic pressure of 36 mmHg. It is reasonable to continue as needed diuretic therapy to maintain euvolemic state. Patient may benefit from outpatient sleep work-up 3. Hypertension/hyperlipidemia/obesity/GERD/anxiety/depression Complicates care, management, recovery and prognosis. Continue home medic ations as indicated. This note was generated with [employer] dictation software. It may contain incorrect words, spelling, and punctuation that were not noted in checking the note before signing. Subjective Subjective Patient did okay overnight. Patient has been aggressive with incentive spirometer and Acapella. Patient does report some production with her cough. Patient is feeling stronger every day. Patient was recently decreased to 6 L nasal cannula at rest. Objective Data Objective Data Vital Signs: Vital Signs Temp Pulse Resp BP Pulse Ox 36.8 C 70 18 125/78 H 94 11/23/20 09:57 11/23/20 10:07 11/23/20 09:57 11/23/20 09:57 11/23/20 09:57 Oxygen Flow Rate (L/min) 6 Oxygen Delivery Method Nasal Cannula Weight: 93.3 kg Body Mass Index (BMI) 32.3 Intake & Output: Intake and Output for Last 24 Hours 11/21/20 11/22/20 11/23/20 23:59 23:59 23:59 Intake Total 480 / 720 1700 / 2180 600 / 600 Balance 480 / 720 1700 / 2180 600 / 600 Lab / Micro Data Result Diagrams: 11/20/20 03:40 11/23/20 07:32 Labs: Laboratory Results - last 24 hr 11/23/20 07:32: Sodium 135 L, Potassium 4.3, Chloride 102, Carbon Dioxide 26.0, Anion Gap 7, BUN 34 H, Creatinine 0.72, Estim Creat Clear Calc 79.79, Est GFR (MDRD) Af Amer 107, Est GFR (MDRD) Non-Af 88, BUN/Creatinine Ratio 47.5 H, Glucose 95, Calcium 9.9 Micro: Microbiology 11/20/20 21:22 Sputum, Expectorated/Coughed Gram Stain - Final 11/20/20 21:22 Sputum, Expectorated/Coughed Respiratory Culture - Final Mixed normal respiratory siomara. No Streptococcus pneumoniae, beta-hemolytic Streptococcus or Staphylococcus aureus isolated. 11/19/20 16:49 Blood Culture (Wb) - Left Hand Blood Culture - Preliminary No growth in 48 hours. 11/19/20 17:16 Blood Culture (Wb) - No Site/Description Given Blood Culture - Preliminary No growth in 48 hours. 11/19/20 21:15 Urine, Random Legionella Antigen - Final 11/19/20 21:15 Urine, Random Streptococcus pneumoniae Antigen (M - Final 11/19/20 18:07 Mucosa - Nasopharyngeal Respiratory Panel (PCR) - Final Adenovirus Physical Exam Const alert and no apparent distress Constitutional Narrative: No conversational dyspnea General Appearance: cooperative Nutritional Appearance: obese HEENT normocephalic, head/scalp atraumatic and moist oral mucous membranes Eyes PERRL, EOMs intact bilaterally and conjunctivae normal Neck supple General: trachea midline Chest inspection of chest normal Resp Effort and Inspection: able to speak in complete sentences Auscultation: diminished lung sounds; Negative for rales, rhonchi or wheezes Cardio regular rate and regular rhythm GI normal to inspection, nondistended, normoactive bowel sounds Extremity no clubbing, cyanosis or edema Skin no rashes or lesions noted Neuro CN's II-XII intact bilaterally, moves all extremities and no focal motor deficits Psych cooperative and affect normal Charges/Coding Visit Charges Inpatient E&M: 82690 Subs Hosp L2
--- NOTE | 2020-11-23 14:38 | PN.HOSP_ITS ---
Subjective Subjective Patient oxygen came down to 6 L at rest. Denies shortness of breath. No tachypnea. Dyspnea on mild to moderate exertion on walking Objective Data Objective Data Vital Signs: Vital Signs Temp Pulse Resp BP Pulse Ox 98.0 F 82 18 120/79 93 11/23/20 14:14 11/23/20 14:14 11/23/20 14:14 11/23/20 14:14 11/23/20 14:14 Oxygen Flow Rate (L/min) 6 Oxygen Delivery Method Nasal Cannula Weight: 205 lb 11.06 oz Body Mass Index (BMI) 32.3 Intake & Output: Intake and Output for Last 24 Hours 11/21/20 11/22/20 11/23/20 23:59 23:59 23:59 Intake Total 480 / 720 1700 / 2180 1250 / 1250 Balance 480 / 720 1700 / 2180 1250 / 1250 Lab / Micro Data Result Diagrams: 11/20/20 03:40 11/23/20 07:32 Labs: Laboratory Results - last 24 hr 11/23/20 07:32: Sodium 135 L, Potassium 4.3, Chloride 102, Carbon Dioxide 26.0, Anion Gap 7, BUN 34 H, Creatinine 0.72, Estim Creat Clear Calc 79.79, Est GFR (MDRD) Af Amer 107, Est GFR (MDRD) Non-Af 88, BUN/Creatinine Ratio 47.5 H, Glucose 95, Calcium 9.9 Micro: Microbiology 11/20/20 21:22 Sputum, Expectorated/Coughed Gram Stain - Final 11/20/20 21:22 Sputum, Expectorated/Coughed Respiratory Culture - Final Mixed normal respiratory siomara. No Streptococcus pneumoniae, beta-hemolytic Streptococcus or Staphylococcus aureus isolated. 11/19/20 16:49 Blood Culture (Wb) - Left Hand Blood Culture - Preliminary No growth in 48 hours. 11/19/20 17:16 Blood Culture (Wb) - No Site/Description Given Blood Culture - Preliminary No growth in 48 hours. 11/19/20 21:15 Urine, Random Legionella Antigen - Final 11/19/20 21:15 Urine, Random Streptococcus pneumoniae Antigen (M - Final 11/19/20 18:07 Mucosa - Nasopharyngeal Respiratory Panel (PCR) - Final Adenovirus Physical Exam Narrative General: Alert, Oriented x3, Cooperative HEENT: Atraumatic, PERRLA, EOMI, Normocephalic Oral: No Gingival or Mucosal Lesions/ Ulcerations Neck: Supple, No JVD, Negative Carotid Bruits Lungs: Air entry diminished in bilateral lung bases. No tachypnea. Hypoxia. No crepitation/rhonchi Cardiovascular: Regular rate, Regular Rhythm, Normal S1, Normal S2, No murmurs Abdomen: Bowel Sounds Present, Soft, Non Tender, Non-Distended : No renal angle tenderness. No suprapubic tenderness. Extremities: No edema, Capillary Refill Less than 3 Seconds Skin: No rashes, No breakdown Musculoskeletal: No Tenderness to Palpation of Joints or Extremities Neurological: Cranial nerves II-XII grossly intact, DTR 2+/4 and Symmetrical, Neuro grossly intact Psych/Mental Status: Normal Affect, Appropriate. Assessment & Plan Assessment/Plan (1) Acute hypoxemic respiratory failure due to COVID-19: (2) Pneumonia due to COVID-19 virus: PLAN: 1. acute hypoxic respiratory failure due to bilateral COVID-19 pneumonia and adenovirus: Respiratory panel is positive for adenovirus. On 15 L of oxygen. Urinary antigens are negative. Furosemide as needed 11/23: Patient oxygenation improved from 12 to 6 L. Encouraged to continue incentive spirometry Pep. Dyspnea on [id number] exertion. Probably 1 m ore day. 2. COVID 19 * unvaccinated * onset 10/29, quarantine completed (continued here for the time being given the adenovirus) * not a candidate for remdesivir * continue dexamethasone through the 18t 3. HTN * stable * continue losartan, metoprolol 5. VTE prophylaxis: LMWH Anticipate discharge tomorrow a.m. Charges/Coding Visit Charges Inpatient E&M: 02706 Subs Hosp L2
[2020-11-24] VITALS (14 sets, daily range): BP systolic 111–130; BP diastolic 70–85; PULSE 65–95; RESP 18–20; TEMP 36.4–36.7; O2SAT 93–94
[2020-11-24] MEDS: Ascorbic Acid 500 MG Tablet PO ×2 (08:27→20:35)
[2020-11-24] MEDS: hydroCHLOROthiazide 25 MG Tablet PO (08:27)
[2020-11-24] MEDS: Aspirin E.C. 81 MG Tablet PO (08:28)
[2020-11-24] MEDS: Metoprolol Tartrate 50 MG Tablet PO ×2 (08:28→20:33)
[2020-11-24] MEDS: dexAMETHasone 4 MG/ML Vial 6 MG IV (08:28)
[2020-11-24] MEDS: Enoxaparin 30 MG/0.3 ML Syringe SC ×2 (08:28→20:35)
[2020-11-24] MEDS: 0.9% Saline Lock 10 ML Syringe IV ×2 (08:28→20:36)
[2020-11-24] MEDS: Pantoprazole Sodium 20 MG Tablet PO (08:28)
[2020-11-24] MEDS: Losartan Potassium 100 MG Tablet PO (08:28)
[2020-11-24 09:12] LABS: Anion Gap 7 (5-15); BUN 38 mg/dL (7-18); BUN/Creat Ratio 44.3 RATIO (10-20); Chloride 98 mmol/L (98-107); Creatinine, Serum 0.86 mg/dL (0.55-1.02); EST Glomerular Filtration Rate 72 mL/min (>60); Est Glom Filt Rate - Afr Amer 87 mL/min (>60); Glucose 89 mg/dL (74-106); Potassium 3.9 mmol/L (3.5-5.1); Sodium Level 135 mmol/L (136-145)
--- NOTE | 2020-11-24 13:29 | PCM.PN.INT ---
Assessment & Plan Assessment/Plan (1) Acute hypoxemic respiratory failure due to COVID-19: (2) Adenoviral bronchitis: PLAN: RECOMMENDATIONS: 1. Continue Decadron as ordered to complete 10 days of therapy (11/29/2020). 2. Continue prophylactic Lovenox. 3. As needed IV diuretic therapy to maintain euvolemic state. Challenge today 4. Encourage incentive spirometer use and mobilize patient as tolerated. 5. Wean supplemental oxygen to maintain saturations at or above 90%. 6. Outpatient work-up for obstructive lung disease following discharge 7. Possible discharge when patient able to tolerate 6 L or less with ambulation. Check walking oximetry. IMPRESSIONS: 1. Acute hypoxemic respiratory failure secondary to combined COVID-19/adenovirus infection The patient experienced symptom onset sometime around October 29, having tested positive for coronavirus approximately 1 week later. She has had progressive dyspnea and hypoxemia. In addition to the aforementioned, the patient also tested positive for adenovirus. CTA chest was negative for pulmonary embolism. The patient was outside of the window for remdesivir and baricitinib. She will be continued on Decadron and prophylactic Lovenox as ordered. Diuretic therapy will be utilized as needed to maintain euvolemic state-challenge today. Continue to wean oxygen as tolerated. Anticipate discharge when able to tolerate 6 L or less (may be the next 24 to 48 hours). Patient should have an outpatient work-up for obstructive lung disease given severity of hypoxia. 2. History of heart failure with preserved ejection fraction Surface echocardiogram from 2018 demonstrated stage I diastolic dysfunction and a right ventricular systolic pressure of 36 mmHg. It is reasonable to continue as needed diuretic therapy to maintain euvolemic state. Patient may benefit from outpatient sleep work-up 3. Hypertension/hyperlipidemia/obesity/GERD/anxiety/depression Complicates care, management, recovery and prognosis. Continue home medications as indicated. This note was generated with [employer] dictation software. It may contain incorrect words, spelling, and punctuation that were not noted in checking the note before signing. Subjective Subjective Patient appears to be doing well at this time. Patient states she feels the best I have since I started this illness. Patient does have a pulse oximeter at the bedside and states she has been running in the low 90s with activity in the room. Patient does have a cough with intermittent production. Objective Data Objective Data Vital Signs: Vital Signs Temp Pulse Resp BP Pulse Ox 36.7 C 88 20 H 111/78 93 11/24/20 08:15 11/24/20 08:28 11/24/20 08:15 11/24/20 08:28 11/24/20 08:20 Oxygen Flow Rate (L/min) 6 Oxygen Delivery Method Nasal Cannula Weight: 93.3 kg Body Mass Index (BMI) 32.3 Intake & Output: Intake and Output for Last 24 Hours 11/22/20 11/23/20 11/24/20 23:59 23:59 23:59 Intake Total 1700 / 2180 2050 / 2290 240 / 240 Balance 1700 / 2180 2050 / 2290 240 / 240 Lab / Micro Data Result Diagrams: 11/20/20 03:40 11/24/20 08:10 Labs: Laboratory Results - last 24 hr 11/24/20 08:10: Sodium 135 L, Potassium 3.9, Chloride 98, Carbon Dioxide 30.0, Anion Gap 7, BUN 38 H, Creatinine 0.86, Estim Creat Clear Calc 66.80, Est GFR (MDRD) Af Amer 87, Est GFR (MDRD) Non-Af 72, BUN/Creatinine Ratio 44.3 H, Glucose 89, Calcium 10.0 Micro: Microbiology 11/20/20 21:22 Sputum, Expectorated/Coughed Gram Stain - Final 11/20/20 21:22 Sputum, Expectorated/Coughed Respiratory Culture - Final Mixed normal respiratory siomara. No Streptococcus pneumoniae, beta-hemolytic Streptococcus or Staphylococcus aureus isolated. 11/19/20 16:49 Blood Culture (Wb) - Left Hand Blood Culture - Preliminary No growth in 48 hours. 11/19/20 17:16 Blood Culture (Wb) - No Site/Description Given Blood Culture - Preliminary No growth in 48 hours. 11/19/20 21:15 Urine, Random Legionella Antigen - Final 11/19/20 21:15 Urine, Random Streptococcus pneumoniae Antigen (M - Final 11/19/20 18:07 Mucosa - Nasopharyngeal Respiratory Panel (PCR) - Final Adenovirus Physical Exam Const alert and no apparent distress Constitutional Narrative: No conversational dyspnea General Appearance: cooperative Nutritional Appearance: obese HEENT normocephalic, head/scalp atraumatic and moist oral mucous membranes Eyes PERRL, EOMs intact bilaterally and conjunctivae normal Neck supple General: trachea midline Chest inspection of chest normal Chest: symmetrical chest wall rise; Negative for crepitus Resp Effort and Inspection: able to speak in complete sentences Auscultation: diminished lung sounds; Negative for rales, rhonchi or wheezes Cardio regular rate, regular rhythm, S1 normal heart sound, S2 normal heart sound, no murmurs, no rub and no gallops GI normal to inspection, nondistended, normoactive bowel sounds Extremity no clubbing, cyanosis or edema Skin no rashes or lesions noted Neuro CN's II-XII intact bilaterally, moves all extremities and no focal motor deficits Psych cooperative and affect normal Charges/Coding Visit Charges Inpatient E&M: 74338 Subs Hosp L2
[2020-11-24] MEDS: Furosemide 20 MG Tablet PO (14:56)
--- NOTE | 2020-11-24 19:45 | PN.HOSP_ITS ---
Subjective Subjective Patient was seen and examined today, she is currently on 5 L via nasal cannula at rest, she does not complain of any shortness of breath, chest discomfort, chills, or fever. Objective Data Objective Data Vital Signs: Vital Signs Temp Pulse Resp BP Pulse Ox 97.8 F 84 18 117/77 93 11/24/20 14:55 11/24/20 15:00 11/24/20 14:55 11/24/20 14:55 11/24/20 18:05 Oxygen Flow Rate (L/min) 5 Oxygen Delivery Method Nasal Cannula Weight: 93.3 kg Body Mass Index (BMI) 32.3 Intake & Output: Intake and Output for Last 24 Hours 11/22/20 11/23/20 11/24/20 23:59 23:59 23:59 Intake Total 1700 / 2180 2050 / 2290 240 / 240 Balance 1700 / 2180 2050 / 2290 240 / 240 Lab / Micro Data Result Diagrams: 11/20/20 03:40 11/24/20 08:10 Labs: Laboratory Results - last 24 hr 11/24/20 08:10: Sodium 135 L, Potassium 3.9, Chloride 98, Carbon Dioxide 30.0, Anion Gap 7, BUN 38 H, Creatinine 0.86, Estim Creat Clear Calc 66.80, Est GFR (MDRD) Af Amer 87, Est GFR (MDRD) Non-Af 72, BUN/Creatinine Ratio 44.3 H, Glucose 89, Calcium 10.0 Micro: Microbiology 11/20/20 21:22 Sputum, Expectorated/Coughed Gram Stain - Final 11/20/20 21:22 Sputum, Expectorated/Coughed Respiratory Culture - Final Mixed normal respiratory siomara. No Streptococcus pneumoniae, beta-hemolytic Streptococcus or Staphylococcus aureus isolated. 11/19/20 16:49 Blood Culture (Wb) - Left Hand Blood Culture - Preliminary No growth in 48 hours. 11/19/20 17:16 Blood Culture (Wb) - No Site/Description Given Blood Culture - Preliminary No growth in 48 hours. 11/19/20 21:15 Urine, Random Legionella Antigen - Final 11/19/20 21:15 Urine, Random Streptococcus pneumoniae Antigen (M - Final 11/19/20 18:07 Mucosa - Nasopharyngeal Respiratory Panel (PCR) - Final Adenovirus Physical Exam Const alert, oriented x3, no apparent distress and healthy appearing General Appearance: cooperative, well kempt and well developed Orientation / Consciousness: awake, oriented to person, oriented to place and oriented to time HEENT normocephalic and moist oral mucous membranes Eyes PERRL, EOMs intact bilaterally and conjunctivae normal Neck nuchal rigidity, supple, no JVD, thyroid normal and no carotid bruits General: trachea midline Resp normal respiratory effort, no retractions, no use of accessory muscles and clear to auscultation bilaterally Auscultation: Negative for rales, rhonchi or wheezes Cardio regular rate, regular rhythm, no murmurs, no rub and no gallops GI normal to inspection, nondistended, normoactive bowel sounds, soft to palpation, non-tender and non-distended Extremity no clubbing, cyanosis or edema Skin no rashes or lesions noted General Skin Exam: no breakdown Neuro oriented x3, CN's II-XII intact bilaterally, no focal motor deficits and no sensory deficits noted Sensorium / Orientation: awake and alert Speech: speech normal Psych thought process normal and affect normal Assessment & Plan Assessment/Plan (1) Pneumonia due to COVID-19 virus: PLAN: 1. COVID-19 pneumonia-patient is currently on dexamethasone, p atient was not a candidate to receive remdesivir or baricitinib #2 acute hypoxic respiratory failure-pulmonary medicine is participating in her care, oxygen will be weaned if possible #3 adenovirus infection #4 chronic congestive heart failure with preserved ejection fraction #5 essential hypertension Charges/Coding Visit Charges Inpatient E&M: 98225 Subs Hosp L2
[2020-11-25] VITALS (8 sets, daily range): BP systolic 102–139; BP diastolic 60–89; PULSE 65–94; RESP 16–18; TEMP 35.7–36.6; O2SAT 88–97
[2020-11-25 07:50] LABS: Anion Gap 6 (5-15); BUN 37 mg/dL (7-18); BUN/Creat Ratio 44.3 RATIO (10-20); Calcium,Total 10.2 mg/dL (8.5-10.1); Chloride 97 mmol/L (98-107); Creatinine, Serum 0.84 mg/dL (0.55-1.02); EST Glomerular Filtration Rate 74 mL/min (>60); Est Glom Filt Rate - Afr Amer 89 mL/min (>60); Estimated Creatinine Clearance 68.39 ml/min; Glucose 106 mg/dL (74-106); Potassium 4.4 mmol/L (3.5-5.1); Sodium Level 135 mmol/L (136-145)
[2020-11-25] MEDS: Aspirin E.C. 81 MG Tablet PO (08:22)
[2020-11-25] MEDS: Losartan Potassium 100 MG Tablet PO (08:22)
[2020-11-25] MEDS: dexAMETHasone 4 MG/ML Vial 6 MG IV (08:22)
[2020-11-25] MEDS: Ascorbic Acid 500 MG Tablet PO (08:22)
[2020-11-25] MEDS: Metoprolol Tartrate 50 MG Tablet PO (08:22)
[2020-11-25] MEDS: hydroCHLOROthiazide 25 MG Tablet PO (08:22)
[2020-11-25] MEDS: Pantoprazole Sodium 20 MG Tablet PO (08:23)
[2020-11-25] MEDS: Enoxaparin 30 MG/0.3 ML Syringe SC (08:23)
[2020-11-25] MEDS: 0.9% Saline Lock 10 ML Syringe IV (08:24)
--- NOTE | 2020-11-25 10:10 | PN.CC_ITS ---
Assessment & Plan Assessment/Plan (1) Acute hypoxemic respiratory failure due to COVID-19: (2) Adenoviral bronchitis: PLAN: RECOMMENDATIONS: 1. Continue Decadron as ordered to complete 10 days of therapy (11/29/2020). 2. Continue prophylactic Lovenox. 3. As needed IV diuretic therapy to maintain euvolemic state. Challenge today 4. Encourage incentive spirometer use and mobilize patient as tolerated. 5. Wean supplemental oxygen to maintain saturations at or above 90%. 6. Outpatient work-up for obstructive lung disease following discharge 7. Okay to discharge from a pulmonary perspective with follow-up in 4 to 6 weeks IMPRESSIONS: 1. Acute hypoxemic respiratory failure secondary to combined COVID- 19/adenovirus infection The patient experienced symptom onset sometime around October 29, having tested positive for coronavirus approximately 1 week later. She has had progressive dyspnea and hypoxemia. In addition to the aforementioned, the patient also tested positive for adenovirus. CTA chest was negative for pulmonary embolism. The patient was outside of the window for remdesivir and baricitinib. She will be continued on Decadron and prophylactic Lovenox as ordered. Diuretic therapy will be utilized as needed to maintain euvolemic state-challenge today. Continue to wean oxygen as tolerated. Okay to discharge from pulmonary perspective with outpatient follow-up in 4 to 6 weeks. Patient should have an outpatient work-up for obstructive lung disease given severity of hypoxia. 2. History of heart failure with preserved ejection fraction Surface echocardiogram from 2018 demonstrated stage I diastolic dysfunction and a right ventricular systolic pressure of 36 mmHg. It is reasonable to continue as needed diuretic therapy to maintain euvolemic state. Patient may benefit from outpatient sleep work-up 3. Hypertension/hyperlipidemia/obesity/GERD/anxiety/depression Complicates care, management, recovery and prognosis. Continue home medications as indicated. This note was generated with [employer] dictation software. It may contain incorrect words, spelling, and punctuation that were not noted in checking the note before signing. Subjective Subjective Patient did well overnight. Patient slept well and states that she feels less shortness of breath with moving around. Oxygen status continues to improve. Patient is hoping to go home. Patient does have a pulse oximeter of her own. Objective Data Objective Data Vital Signs: Vital Signs Temp Pulse Resp BP Pulse Ox 35.8 C L 94 16 139/89 H 90 11/25/20 08:20 11/25/20 08:22 11/25/20 08:20 11/25/20 08:20 11/25/20 08:37 Oxygen Flow Rate (L/min) [ 3 AMBULATING with Oxygen #1] Oxygen Flow Rate (L/min) [At 3 REST with Oxygen] Oxygen Flow Rate (L/min) 4 Oxygen Delivery Method Nasal Cannula Weight: 92.3 kg Body Mass Index (BMI) 32.3 Intake & Output: Intake and Output for Last 24 Hours 11/23/20 11/24/20 11/25/20 23:59 23:59 23:59 Intake Total 2049 240 / 240 Output Total 2 / Balance 2049 238 / 238 Lab / Micro Data Result Diagrams: 11/20/20 03:40 11/25/20 06:46 Labs: Laboratory Results - last 24 hr 11/25/20 06:46: Sodium 135 L, Potassium 4.4, Chloride 97 L, Carbon Dioxide 32.0, Anion Gap 6, BUN 37 H, Creatinine 0.84, Estim Creat Clear Calc 68.39, Est GFR (MDRD) Af Amer 89, Est GFR (MDRD) Non-Af 74, BUN/Creatinine Ratio 44.3 H, Glucose 106, Calcium 10.2 H Micro: Microbiology 11/19/20 16:49 Blood Culture (Wb) - Left Hand Blood Culture - Final No growth in 5 days. 11/19/20 17:16 Blood Culture (Wb) - No Site/Description Given Blood Culture - Final No growth in 5 days. 11/20/20 21:22 Sputum, Expectorated/Coughed Gram Stain - Final 11/20/20 21:22 Sputum, Expectorated/Coughed Respiratory Culture - Final Mixed normal respiratory siomara. No Streptococcus pneumoniae, beta-hemolytic Streptococcus or Staphylococcus aureus isolated. 11/19/20 21:15 Urine, Random Legionella Antigen - Final 11/19/20 21:15 Urine, Random Streptococcus pneumoniae Antigen (M - Final 11/19/20 18:07 Mucosa - Nasopharyngeal Respiratory Panel (PCR) - Final Adenovirus Physical Exam Const alert and no apparent distress Constitutional Narrative: No conversational dyspnea General Appearance: cooperative Nutritional Appearance: obese HEENT normocephalic, head/scalp atraumatic and moist oral mucous membranes Eyes PERRL, EOMs intact bilaterally and conjunctivae normal Neck supple General: trachea midline Chest inspection of chest normal Chest: symmetrical chest wall rise; Negative for crepitus Resp Effort and Inspection: able to speak in complete sentences Auscultation: diminished lung sounds; Negative for rales, rhonchi or wheezes Cardio regular rate, regular rhythm, S1 normal heart sound, S2 normal heart sound, no murmurs, no rub and no gallops GI normal to inspection, nondistended, normoactive bowel sounds Extremity no clubbing, cyanosis or edema Skin no rashes or lesions noted Neuro CN's II-XII intact bilaterally, moves all extremities and no focal motor defic its Psych cooperative and affect normal Charges/Coding Visit Charges Inpatient E&M: 57762 Subs Hosp L2
[2020-11-25] MEDS: Furosemide 20 MG Tablet PO (10:24)
--- NOTE | 2020-11-25 11:11 | CASEMGMT ---
Addendum entered by Lynnette Elizabeth 11/25/20 11:44: Pt updated on home oxygen, voices understanding. Pt voices no further questions/concerns/needs. Pt states has pulse ox to monitor oxygen levels at home. Trudy HENSLEY CM Original Note: Per Delilah HENSLEY, pt qualifies for 3L nc continuous and referral faxed to [facility] [place]. Call to Amparo at [facility] [place] to notify of referral and provided e-tank to be used, voices understanding. Parrish also aware that pt is self-pay and [facility] will need debit/credit card on file for pt. Dr. Dc at bedside and pt to be updated once able. Pt is independent and therapy recommends no further therapy. Trudy HENSLEY CM
--- NOTE | 2020-11-25 12:17 | PCM.DC ---
Discharge Instructions Diet Discharge Diet: No restrictions Activity Discharge Activity: Return to Normal Activity Weight Bearing Status: Full weight bearing Follow Up Care Test Results: Test results from this visit will be discussed in further detail at your follow-up appointment, if applicable. Discharge Plan Admission Admit Date/Time: 11/19/20 17:34 Primary Reason for Your Visit: covid 19 pneumonia Attending Provider: Mikie Dc Primary Care Provider: Yusuf Bobo Consulting Providers: Smooth Hawkins ; Akil Burnett Discharge Orders/Prescriptions Prescriptions: New metoprolol tartrate 50 mg Tablet 50 mg PO BID Qty: 60 RF: 0 dexamethasone 2 mg tablet 6 mg PO DAILY Qty: 9 RF: 0 Continued omeprazole 10 mg Capsule,Delayed Release(Dr/Ec) 10 mg PO DAILY RF: 0 hydrochlorothiazide 25 mg tablet 25 mg PO DAILY RF: 0 losartan 100 mg tablet 100 mg PO DAILY RF: 0 aspirin 81 mg Tablet,Delayed Release (Dr/Ec) 81 mg PO DAILY RF: 0 ascorbic acid (vitamin C) 500 mg Tablet 500 mg PO DAILY RF: 0 zinc 50 mg Tablet 50 mg PO DAILY RF: 0 cholecalciferol (vitamin D3) 25 mcg (1,000 unit) Capsule 50 mcg PO DAILY RF: 0 Referrals / Follow Up: Yusuf Bobo MD [Primary Care Provider] - Within 2 Weeks Disposition Disposition (needs filled in before D/C Order can be placed): Home, Self Care
--- NOTE | 2020-11-25 19:24 | DS.PCM_ITS ---
Providers Date of Admission: 11/19/20 Date of Discharge: 11/25/20 Primary Care Physician: Dr. Yusuf Bobo MD Consultations 11/19/20 18:44 Consult: Infectious Disease Routine Consulting Provider: Smooth Hawkins Reason for Consult: Acute Hypoxic Resp Failure, COVID PNA on BIPAP, consider Barcitinib. EMERGENT Consult: No Notified: Yes Date Notified: 11/19/20 Time Notified: 17:37 Method of Notification: cortext Consult: Software Engineering Associate Manager / Pulmonary Medicine Routine Consulting Provider: Akil Burnett Reason for Consult: Acute Hypoxic Resp Failure, COVID PNA EMERGENT Consult: No Notified: Yes Date Notified: 11/19/20 Time Notified: 17:36 Method of Notification: cortext Reason For Visit: ACUTE HYPOXIC RESPIRATORY FAILURE, COVID PNA Diagnosis Discharge Diagnosis (1) Acute hypoxemic respiratory failure due to COVID-19: Status: Acute Code(s): U07.1 - COVID-19; J96.01 - Acute respiratory failure with hypoxia (2) Adenoviral bronchitis: Status: Acute Code(s): J40 - Bronchitis, not specified as acute or chronic; B97.0 - Adenovirus as the cause of diseases classified elsewhere Plan: Discharge diagnosis: #1 pneumonia secondary to COVID-19 virus #2 acute hypoxic respiratory failure #3 adenovirus infection #4 chronic congestive heart failure with preserved ejection fraction #5 essential hypertension Medications at Discharge Home Medications ascorbic acid (vitamin C) 500 mg PO DAILY 11/19/20 aspirin 81 mg PO DAILY 11/19/20 cholecalciferol (vitamin D3) 50 mcg PO DAILY 11/19/20 hydrochlorothiazide 25 mg PO DAILY 11/19/20 losartan 100 mg PO DAILY 11/19/20 omeprazole 10 mg PO DAILY 11/19/20 zinc 50 mg PO DAILY 11/19/20 dexamethasone 6 mg PO DAILY #9 tab 11/25/20 metoprolol tartrate 50 mg PO BID #60 tab 11/25/20 Hospital Course Operations None Procedures None Summary of Care Provided Minutes Spent on Discharge: 32 Hospital Course: 60-year-old white female was seen in the emergency department at [facility] after she was transported from her PCPs office due to shortness of breath for evaluation in the emergency room. 29 October 2020 the patient became symptomatic with COVID-19 infection, she got a test back on 06 November 2020, she went to her PCPs office and was noted to have a pulse ox of 73% on room air with increasing respiratory rates approaching 50, she was sent to the emergency department for evaluation. Work-up in the emergency room included a CT of the chest which showed no acute pulmonary emboli but diffuse bilateral airspace opacities consistent with Covid pneumonia. Patient was admitted to ICU, she was placed on BiPAP initially and transition to Airvo. Patient was seen in consultation by pulmonary medicine and infectious diseases, she was placed on IV Decadron. Patient was not deemed to be a candidate for or baricitinib. Patient's respiratory panel tested positive for adenovirus. Patient made slow progress while hospitalized. On 11/25/2020, patient was seen and examined: on examination she appeared in good health and spirits, she does not appear to be in any distress. Vital signs as documented. Skin warm and dry and without overt rashes. Neck without JVD, thyroid appears normal, trachea is midline, neck is supple. Lungs clear, normal air movement was noted. Heart exam notable for regular rhythm, normal sounds and absence of murmurs, rubs or gallops. Abdomen unremarkable and without evidence of organomegaly, masses, or abdominal aortic enlargement, bowel sounds are present in all 4 quadrants, no abdominal tenderness was noted. Extremities nonedematous, no cyanosis was noted, no clubbing was noted. Neuro: Cranial nerves II through XII are grossly intact, no focal motor deficits were noted, sensation to light touch and pinprick is intact, motor exam 5/5 throughout. Psych: Patient is alert and oriented x3, she does not appear anxious or depressed, she does not appear agitated. At the time of discharge on 11/25/2020, patient required supplemental oxygen at 3 L/min on ambulation and at rest, she was expected to use oxygen continuously in her home and outside her home. Patient was discharged to home on 11/25/2020 in stable condition. Weight / BMI Weight Weight: 92.3 kg Body Mass Index (BMI) 32.3 ABG / Lab / Microbiology Data Result Diagrams: 11/20/20 03:40 11/25/20 06:46 Laboratory: Laboratory Results - last 24 hr 11/25/20 06:46: Sodium 135 L, Potassium 4.4, Chloride 97 L, Carbon Dioxide 32.0, Anion Gap 6, BUN 37 H, Creatinine 0.84, Estim Creat Clear Calc 68.39, Est GFR (MDRD) Af Amer 89, Est GFR (MDRD) Non-Af 74, BUN/Creatinine Ratio 44.3 H, Glucose 106, Calcium 10.2 H Microbiology: Microbiology 11/19/20 16:49 Blood Culture (Wb) - Left Hand Blood Culture - Final No growth in 5 days. 11/19/20 17:16 Blood Culture (Wb) - No Site/Description Given Blood Culture - Final No growth in 5 days. 11/20/20 21:22 Sputum, Expectorated/Coughed Gram Stain - Final 11/20/20 21:22 Sputum, Expectorated/Coughed Respiratory Culture - Final Mixed normal respiratory siomara. No Streptococcus pneumoniae, beta-hemolytic Streptococcus or Staphylococcus aureus isolated. 11/19/20 21:15 Urine, Random Legionella Antigen - Final 11/19/20 21:15 Urine, Random Streptococcus pneumoniae Antigen (M - Final 11/19/20 18:07 Mucosa - Nasopharyngeal Respiratory Panel (PCR) - Final Adenovirus D/C Instructions Discharge Diet: No restrictions Weight Bearing Status: Full weight bearing Meaningful Use Info Meaningful Use Diagnoses (Choose all that apply): None applicable Discharge Plan Admission Admit Date/Time: 11/19/20 17:34 Primary Reason for Your Visit: covid 19 pneumonia Attending Provider: Mikie Dc Primary Care Provider: Yusuf Bobo Consulting Providers: Smooth Hawkins ; Akil Burnett Instructions Additional Instructions / Restrictions: Patient Problems: Altered Health Status related to Hospitalization Patient Goals: *Optimal Level of Health *Keep Appointments *Medication Compliance *Remain Safe Discharge Orders/Prescriptions Prescriptions: New metoprolol tartrate 50 mg Tablet 50 mg PO BID Qty: 60 RF: 0 dexamethasone 2 mg tablet 6 mg PO DAILY Qty: 9 RF: 0 Continued omeprazole 10 mg Capsule,Delayed Release(Dr/Ec) 10 mg PO DAILY RF: 0 hydrochlorothiazide 25 mg tablet 25 mg PO DAILY RF: 0 losartan 100 mg tablet 100 mg PO DAILY RF: 0 aspirin 81 mg Tablet,Delayed Release (Dr/Ec) 81 mg PO DAILY RF: 0 ascorbic acid (vitamin C) 500 mg Tablet 500 mg PO DAILY RF: 0 zinc 50 mg Tablet 50 mg PO DAILY RF: 0 cholecalciferol (vitamin D3) 25 mcg (1,000 unit) Capsule 50 mcg PO DAILY RF: 0 Referrals / Follow Up: Yusuf Bobo MD [Primary Care Provider] - 12/08/20 11:00 am Disposition Disposition (needs filled in before D/C Order can be placed): Home, Self Care Charges/Coding Visit Charges Inpatient E&M: [id number] Disch Hosp
--- NOTE | 2020-11-26 15:24 | CASEMGMT ---
SHELLIE WILLIS Discharge F/U Phone Call LACE: 12 Strata: 3 Discharge date: 11/25/20 Call date: 11/26/20 Call time: [phone] Admission dx: Acute hypoxic resp failure, COVID pna Pt states has been 'pretty good' since discharge home. Pt states no questions with d/c instructions/medications. Pt states has pulse ox at home and states no concerns with home oxygen. Pt states plans to f/u with PCP. Pt states no suggestions for [facility] and states 'everything was very awesome.' Pt voices no further questions/concerns/needs. [place] SHELLIE WILLIS
== END 2020-11-25 14:17 | disposition home or self-care (01) | DRG 177 ==
LOC: ED 18:07 → ICU 18:17 → PCU 11-21 07:25 → ICU 11-22 09:38
PROVIDERS: Internal Medicine Critical Care Medicine; Admitting Provider Family Medicine; Emergency Provider Emergency Medicine; PCP Family Medicine; Visit Provider Internal Medicine
DX: U07.1 COVID-19 (principal); J12.82 Pneumonia due to coronavirus disease 2019; J96.01 Acute respiratory failure with hypoxia; I50.32 Chronic diastolic (congestive) heart failure; J40 Bronchitis, not specified as acute or chronic; B97.0 Adenovirus as the cause of diseases classified elsewhere; I11.0 Hypertensive heart disease with heart failure; Z28.3 Underimmunization status; F32.A Depression, unspecified; F41.9 Anxiety disorder, unspecified; K21.9 Gastro-esophageal reflux disease without esophagitis; E66.9 Obesity, unspecified; Z68.32 Body mass index [BMI] 32.0-32.9, adult; Z79.82 Long term (current) use of aspirin; Z82.3 Family history of stroke; Z82.49 Family history of ischemic heart disease and other diseases of the circulatory system; Z99.81 Dependence on supplemental oxygen
CPT/HCPCS: 36415; 71275; 80048; 80053; 82728; 83036; 83605; 83615; 83735; 83880; 84100; 84145; 84484; 85025; 85379; 85384; 86140; 87040; 87070; 87205; 87449; 87633; 93005; 94002; 94667; 94762; 97110; 97162; 97166; 97530; 99251; 99285; Q9967; A4216; G0463; J1940

== ENCOUNTER 2021-04-18 15:05 | Outpatient (CLI) | payer OTHER, SELFPAY ==
[2021-04-18 18:35] LABS: Anion Gap 4 (5-15); BUN 28 mg/dL (7-18); Calcium,Total 9.3 mg/dL (8.5-10.1); Chloride 112 mmol/L (98-107); Cholesterol 229 mg/dL (200); EST Glomerular Filtration Rate 77 mL/min (>60); Est Glom Filt Rate - Afr Amer 94 mL/min (>60); Glucose 93 mg/dL (74-106); High Density Lipoprotein 53 mg/dL; Potassium 3.9 mmol/L (3.5-5.1); Sodium Level 142 mmol/L (136-145); Triglycerides 246 mg/dL; Very Low Density Lipoprotein 49 mg/dL (5-40)
== END 2021-04-18 23:59 | disposition home or self-care (01) ==
LOC: MFPLAB 15:07
PROVIDERS: PCP Family Medicine; Visit Provider Family Medicine
DX: I10 Essential (primary) hypertension (principal)
CPT/HCPCS: 36415; 80048; 80061

== ENCOUNTER → 2021-10-20 | Outpatient (CLI) | payer OTHER, SELFPAY ==
[2021-10-20 12:44] LABS: Anion Gap 6 (5-15); BUN 21 mg/dL (7-18); BUN/Creat Ratio 24.8 RATIO (10-20); Calcium,Total 9.6 mg/dL (8.5-10.1); Chloride 107 mmol/L (98-107); Cholesterol 222 mg/dL (200); Creatinine, Serum 0.85 mg/dL (0.55-1.02); EST Glomerular Filtration Rate 72 mL/min (>60); Est Glom Filt Rate - Afr Amer 88 mL/min (>60); Glucose 98 mg/dL (74-106); High Density Lipoprotein 49 mg/dL; Potassium 3.7 mmol/L (3.5-5.1); Sodium Level 141 mmol/L (136-145); Triglycerides 191 mg/dL; Very Low Density Lipoprotein 38 mg/dL (5-40)
== END | disposition home or self-care (01) ==
PROVIDERS: PCP Family Medicine; Referring Provider Family Medicine; Visit Provider Family Medicine
DX: I10 Essential (primary) hypertension (principal)
CPT/HCPCS: 36415; 80048; 80061

== ENCOUNTER → 2023-10-05 | Outpatient (CLI) | payer SELFPAY ==
[2023-10-05 18:06] LABS: Anion Gap 6 (5-15); BUN 29 mg/dL (7-18); Calcium,Total 9.5 mg/dL (8.5-10.1); Chloride 106 mmol/L (98-107); Creatinine, Serum 1.26 mg/dL (0.55-1.02); EST Glomerular Filtration Rate 46 mL/min (>60); Est Glom Filt Rate - Afr Amer 55 mL/min (>60); Glucose 118 mg/dL (74-106); Potassium 4.1 mmol/L (3.5-5.1); Sodium Level 139 mmol/L (136-145)
== END | disposition home or self-care (01) ==
LOC: MFPLAB 16:24
PROVIDERS: PCP Family Medicine; Visit Provider Family Medicine
DX: I10 Essential (primary) hypertension (principal)
CPT/HCPCS: 36415; 80048

== ENCOUNTER → 2024-08-01 | Outpatient (CLI) | payer OTHER, SELFPAY ==
[2024-08-01 16:03] LABS: ALB/GLOB Ratio 1.4 RATIO (0.9-2.4); AST(SGOT) 42 U/L (<=31); Alanine Aminotransfer ALT/SGPT 30 U/L (<=34); Alkaline Phosphatase 105 U/L (35-104); Anion Gap 10 (5-15); BUN 32 mg/dL (4-19); BUN/Creat Ratio 24.5 RATIO (10-20); Calcium,Total 9.6 mg/dL (7.6-11.0); Carbon Dioxide 24.3 mmol/L (21.0-32.0); Chloride 105 mmol/L (98-108); Cholesterol 200 mg/dL (<=200); Creatinine, Serum 1.31 mg/dL (0.70-1.20); EST Glomerular Filtration Rate 45 (>60); Globulin 2.8 g/dL (2.2-4.2); Glucose 96 mg/dL (70-99); High Density Lipoprotein 51 mg/dL; Low Density Lipoprotein Calc. 116 mg/dL; Potassium 4.5 mmol/L (3.3-5.1); Protein, Total 6.8 g/dL (5.9-8.4); Sodium Level 139 mmol/L (133-145); Total Bilirubin 0.35 mg/dL (0.00-1.30); Triglycerides 165 mg/dL; Very Low Density Lipoprotein 33 mg/dL (5-40); cholesterol:hdl ratio screen 3.95
== END | disposition home or self-care (01) ==
LOC: MFPLAB 13:59
PROVIDERS: PCP Family Medicine; Referring Provider Family Medicine; Visit Provider Family Medicine
DX: I10 Essential (primary) hypertension (principal)
CPT/HCPCS: 36415; 80053; 80061

== ENCOUNTER → 2024-09-24 | Outpatient (CLI) | payer OTHER, SELFPAY ==
--- OUTSIDE RECORDS SUMMARY | 2024-09-24 07:17 | XMS RPT_ITS | CCD ---
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 cisternal spaces unremarkable. CTA BRAIN: There is calcification along the cavernous and paraclinoid segments of the distal internal carotid arteries without high-grade stenosis. Distal internal carotid arteries are patent. Anterior cerebral arteries are normal. Middle cerebral arteries are normal. Distal vertebral arteries are normal. Basilar artery normal. Cerebellar arteries are patent. Posterior cerebral arteries are normal. No proximal arterial occlusion. No aneurysm. No vascular malformation. Venous sinuses are patent. No pathologic enhancement in the brain. CTA NECK: No stenosis of the common carotid arteries. There is noncalcified plaque distally in the right common carotid artery and at the right carotid bifurcation without significant stenosis. Left carotid bifurcation normal. No stenosis of the internal carotid arteries. No vertebral artery stenosis. No acute dissection. No neck mass. No lymphadenopathy. IMPRESSION: 1. No acute intracranial abnormality. No hemorrhage. No mass. 2. No proximal intracranial arterial stenosis or occlusion. No aneurysm or vascular malformation. 3. No significant carotid or vertebral artery stenosis in the neck. No acute dissection. DM/bhavin Workstation ID: [id number] Dictated by: ABIEL HICKS on SunAug 10, 2023 5:31:48 PM EDT Transcribed by: ANGIE ENGLAND on SunAug 10, 2023 5:35:45 PM EDT Finalized by: ABIEL HICKS on SunAug 10, 2023 5:39:06 PM EDT [facility] Comment on above: Order Comment: Injur y/Trauma or Illness?:Illness/Other How long have you had these symptoms (acute/chronic)?:Acute Reason for exam?:vertigo, central Type of Exam?:Initial Additional signs and symptoms?:chest tightness, sob ED Prov Noteon 08-10-2023 ED Prov Note ED PROVIDER NOTE [facility] NAME: Sena Rosado AGE: 62 y.o. : 1960 VISIT DATE: 08/10/2023 CSN: [id number] PCP: Transcribed, External Chief Complaint Patient presents with Chest Pain Shortness of Breath Chief complaint dizziness History of present illness 62-year-old female who today had 3 dizzy spells at work today prompting her to seek medical attention denies diplopia dysarthria dysphagia focal motor weakness upon arrival here felt chest tightness she had that prior to coming here. She was noted to have blood pressure 228/106 pulse of this is 89 temp 98 pulse ox 90% History reviewed. No pertinent past medical history. History reviewed. No pertinent surgical history. History reviewed. No pertinent family history. Social History Socioeconomic History Marital status: Tobacco Use Smoking status: Never Smokeless tobacco: Never Substance and Sexual Activity Drug use: Not Currently No current outpatient medications on file prior to encounter. No Known Allergies Review of Systems All other systems reviewed and are negative. Patient Vitals for the past 24 hrs: BP Temp Temp src Pulse Resp SpO2 Height Weight 08/10/23 1900 (!) 187/101 -- -- 73 (!) 21 97 % -- -- 08/10/23 1845 (!) 194/94 -- -- 75 (!) 21 95 % -- -- 08/10/23 1800 (!) 206/106 -- -- 74 (!) 22 96 % -- -- 08/10/23 1735 (!) 189/93 -- -- -- -- -- -- -- 08/10/23 1559 -- -- -- -- -- 96 % -- -- 08/10/23 1557 (!) 228/106 98 degrees F (36.7 degrees C) Oral 89 18 96 % 5' 7 102.1 kg (225 lb) Physical Exam Vitals and nursing note reviewed. Constitutional: Appearance: She is well-developed and normal weight. HENT: Head: Normocephalic and atraumatic. Eyes: Extraocular Movements: Extraocular movements intact. Pupils: Pupils are equal, round, and reactive to light. Cardiovascular: Rate and Rhythm: Normal rate and regular rhythm. Heart sounds: Murmur heard. Crescendo diastolic murmur is present. Musculoskeletal: General: Normal range of motion. Cervical back: Normal range of motion and neck supple. Pulmonary: Effort: Pulmonary effort is normal. Breath sounds: Normal breath sounds. Abdominal: General: Bowel sounds are normal. Palpations: Abdomen is soft. Neurological: Mental Status: She is alert. . Laboratory & Radiographic Imaging (if done): Results for orders placed or performed during the hospital encounter of 08/10/23 POC CBC and Differential Result Value Ref Range WBC 5.88 4.50 - 11.00 K/mcL RBC 4.80 4.00 - 5.20 M/mcL Hemoglobin 14.4 12.0 - 16.0 g/dL Hematocrit 41.7 36.0 - 46.0 % MCV 86.9 80.0 - 100.0 fL MCH 30.0 26.0 - 34.0 pg MCHC 34.5 31.0 - 37.0 g/dL RDW - CV 12.2 11.6 - 14.8 % Platelets 172 150 - 400 K/mcL MPV 9.7 9.4 - 12.4 fL Neutrophils 62.3 % Lymphocytes 28.9 % Monocytes 6.8 % Eosinophils 1.2 % Basophils 0.3 % IG Percent 0.50 % Neutrophils Abs 3.66 1.70 - 7.00 K/mcL Lymphocytes Abs 1.70 0.90 - 4.00 K/mcL Monocytes Abs 0.40 0.30 - 0.90 K/mcL Eosinophils Abs 0.07 0.00 - 0.50 K/mcL Basophils Abs 0.02 0.00 - 0.30 K/mcL IG Absolute 0.03 0.00 - 0.30 K/mcL POC Basic Metabolic Panel Result Value Ref Range Glucose 120 (H) 65 - 99 mg/dL BUN 25 8 - 25 mg/dL Creatinine 1.13 0.60 - 1.20 mg/dL GFR 55 (L) >=60 mL/min/1.73 m2 Sodium 143 135 - 145 mmol/L Potassium 4.2 3.5 - 5.1 mmol/L Chloride 105 98 - 108 mmol/L TCO2 28 21 - 32 mmol/L Ionized Calcium 5.1 4.5 - 5.3 mg/dL POC Troponin I Result Value Ref Range Troponin I <0.05 <0.05 ng/mL POC B-type natriuretic peptide (BNP) Result Value Ref Range BNP 60.1 <100 pg/mL CT Angiogram Head Neck Final Result 1. No acute intracranial abnormality. No hemorrhage. No mass. 2. No proximal intracranial arterial stenosis or occlusion. No aneurysm or vascular malformation. 3. No significant carotid or vertebral artery stenosis in the neck. No acute dissection. DMG/Cemprav Workstation ID: [id number] XR Chest 1 View Final Result No acute cardiopulmonary process. Workstation ID: [id number] EKG 12-lead Date/Time: 08/10/2023 4:06 PM Performed by: Ilia Mckeon MD Authorized by: Ilia Mckeon MD Interpreted by ED attending physician Rhythm: sinus rhythm BPM: 75 Conduction: conduction normal ST Segments: ST segments normal T Waves: T waves normal normal PA interval normal QRS interval normal QT interval Clinical impression: normal ECG Medical Decision Making Differential diagnosis #1 acute coronary syndrome #2 uncontrolled hypertension #3 CHF #4 vertebrobasilar insufficiency Considering the patient's differential diagnosis patient was placed on a telemetry monitor EKG was done CBC electrolytes BNP troponin were done CTA of the head and neck dose of labetalol was given Amount and/or Complexity of Data Reviewed Radiology: ordered and independent interpretation performed. Details: CTA of (more content not included)... Normal [facility] POC B-TYPE NATRIURETIC PEPTI DE (BNP) - Marc 08-10-2023 Natriuretic peptide B (Bld) [Mass/Vol] 60.1 pg/mL Normal <100 [facility] POC BASIC METABOLIC PANEL - Marc 08-10-2023 Chloride [Moles/Vol] 105 mmol/L Normal 98-108 [facility] Comment on above: Order Comment: [facility] has implemented the eGFR calculation approach that does not have a coefficient for race that conforms to the NKF-ASN Task Force Recommendations. CO2 [Moles/Vol] 28 mmol/L Normal 21-32 [facility] Comment on above: Order Comment: [facility] has implemented the eGFR calculation approach that does not have a coefficient for race that conforms to the NKF-ASN Task Force Recommendations. Creatinine [Mass/Vol] 1.13 mg/dL Normal 0.60-1.20 [facility] Comment on above: Order Comment: [facility] has implemented the eGFR calculation approach that does not have a coefficient for race that conforms to the NKF-ASN Task Force Recommendations. Glucose [Mass/Vol] 120 mg/dL High 65-99 [facility] Comment on above: Order Comment: [facility] has implemented the eGFR calculation approach that does not have a coefficient for race that conforms to the NKF-ASN Task Force Recommendations. POC GFR 55 mL/min/1.73 m2 Low >=60 [facility] Comment on above: Order Comment: [facility] has implemented the eGFR calculation approach that does not have a coefficient for race that conforms to the NKF-ASN Task Force Recommendations. Result Comment: Linda mated GFR was calculated using the 2020 CKD-EPI creatinine equation. POC IONIZED CALCIUM 5.1 mg/dL Normal 4.5-5.3 [facility] Comment on above: Order Comment: [facility] has implemented the eGFR calculation approach that does not have a coefficient for race that conforms to the NKF-ASN Task Force Recommendations. Potassium [Moles/Vol] 4.2 mmol/L Normal 3.5-5.1 [facility] Comment on above: Order Comment: [facility] has implemented the eGFR calculation approach that does not have a coefficient for race that conforms to the NKF-ASN Task Force Recommendations. Sodium [Moles/Vol] 143 mmol/L Normal 135-145 [facility] Comment on above: Order Comment: [facility] has implemented the eGFR calculation approach that does not have a coefficient for race that conforms to the NKF-ASN Task Force Recommendations. Urea nitrogen [Mass/Vol] 25 mg/dL Normal 8-25 [facility] Comment on above: Order Comment: [facility] has implemented the eGFR calculation approach that does not have a coefficient for race that conforms to the NKF-ASN Task Force Recommendations. POC CBC AND DIFFERENTIALon 0 08-10-2023 BASOPHILS ABSOLUTE COUNT 0.02 K/mcL Normal 0.00-0.30 [facility] Basophils/100 WBC (Bld) 0.3 % Normal [facility] Eosinophils (Bld) [#/Vol] 0.07 10*3/uL Normal 0.00-0.50 [facility] Eosinophils/100 WBC (Bld) 1.2 % Normal [facility] Erythrocyte distribution width (RBC) [Ratio] 12.2 % Normal 11.6-14.8 [facility] Hematocrit (Bld) [Volume fraction] 41.7 % Normal 36.0-46.0 [facility] Hemoglobin (Bld) [Mass/Vol] 14.4 g/dL Normal 12.0-16.0 [facility] IG ABSOLUTE 0.03 K/mcL Normal 0.00-0.30 [facility] IG PERCENT 0.50 % Normal [facility] Comment on above: Result Comment: The IG parameter is the percentage of metamyelocytes, myelocytes and promyelocytes. An immature granulocyte count (IG) of 1% or more suggests the possibility of infection, an IG count of 3% is very likely related to an infection. Lymphocytes (Bld) [#/Vol] 1.70 10*3/uL Normal 0.90-4.00 [facility] Lymphocytes/100 WBC (Bld) 28.9 % Normal [facility] MCH (RBC) [Entitic mass] 30.0 pg Normal 26.0-34.0 [facility] MCV (RBC) [Entitic vol] 86.9 fL Normal 80.0-100.0 [facility] MEAN CORPUSCULAR HEMOGLOBIN CONC 34.5 g/dL Normal 31.0-37.0 [facility] Monocytes (Bld) [#/Vol] 0.40 10*3/uL Normal 0.30-0.90 [facility] Monocytes/100 WBC (Bld) 6.8 % Normal [facility] NEUTROPHILS ABSOLUTE COUNT 3.66 K/mcL Normal 1.70-7.00 [facility] Neutrophils/100 WBC (Bld) 62.3 % Normal [facility] Platelet mean volume (Bld) [Entitic vol] 9.7 fL Normal 9.4-12.4 [facility] Platelets (Bld) [#/Vol] 172 10*3/uL Normal 150-400 [facility] RBC (Bld) [#/Vol] 4.80 10*6/uL Normal 4.00-5.20 [facility] WBC (Bld) [#/Vol] 5.88 10*3/uL Normal 4.50-11.00 [facility] < Normal <0.05 [facility] XR CHEST PA/APon 08-10-2023 XR CHEST PA/AP EXAMINATION: XR CHEST PA/AP HISTORY: ORDERING SYSTEM PROVIDED HISTORY: Shortness of breath, TECHNOLOGIST PROVIDED HISTORY: Illness/Other Reason for exam: shortness of breath Cancer History: n Surgery, RadiationHistory: n Encounter Type: Initial Additional signs and symptoms: chest tightness, hypertension ORDERING SYSTEM PROVIDED DIAGNOSIS CODES: COMPARISON: None FINDINGS: One-view chest x-ray. No pneumothorax, pleural effusion or focal airspace consolidation. Heart is normal in size. Bony thorax is unremarkable. IMPRESSION: No acute cardiopulmonary process. Workstation ID: [id number] Dictated by: TODD TAMAYO on SunAug 10, 2023 4:38:25 PM EDT Transcribed by: TODD TAMAYO on SunAug 10, 2023 4:38:25 PM EDT Finalized by: TODD TAMAYO on SunAug 10, 2023 4:38:25 PM EDT Normal [facility] Comment on above: Order Comment: Injur y/Trauma or Illness?:Illness/Other How long have you had these symptoms (acute/chronic)?:Acute Reason for exam?:shortness of breath History of cancer?:n Surgeries, chemotherapy, or radiation?:n Type of Exam?:Initial Additional signs and symptoms?:chest tightness, hypertension Basophil percentageon 2021 Chloride [Moles/Vol] 107 mmol/L 98-107 [facility] Work Phone: Cholesterol [Mass/Vol] 222 mg/dL <200 [facility] Work Phone: Comment on above: <200 mg/dL Desirable 200-240 mg/dL Borderline >240 mg/dL High Risk Glucose [Mass/Vol] 98 mg/dL 74-106 [facility] Work Phone: Potassium [Moles/Vol] 3.7 mmol/L 3.5-5.1 [facility] Work Phone: Sodium [Moles/Vol] 141 mmol/L 136-145 [facility] Work Phone: Triglyceride [Mass/Vol] 191 mg/dL <199 [facility] Work Phone: Comment on above: The drugs N-Acetylcy steine and Metamizole may falsely depress this assay.Serum Triglycerides Reference Interval Normal <150 mg/dL Borderline high 150 - 199 mg/dL High 200 - 499 mg/dL Very High > or = 500 mg/dL Laboratory - Chemistry and C hemistry - challengeon 10-20-2021 CO2 [Moles/Vol] 28.0 mmol/L 21.0-32.0 [facility] Work Phone: Urea nitrogen/Creatinine [Mass ratio] 24.8 mg/mg 10-20 [facility] Work Phone: No Panel Informationon 10-20 Estimated GFR (MDRD) Amer 88 mL/min >60 [facility] Work Phone: Comment on above: GFR Calc Estimated GFR (MDRD) Non-Af Amer 72 mL/min >60 [facility] Work Phone: Comment on above: Non- GFR Calc Serum or plasma calcium willy urement (mass/volume)on 10-20-2021 Calcium [Mass/Vol] 9.6 mg/dL 8.5-10.1 [facility] Work Phone: Serum or plasma cholesterol in HDL measurement (mass/volume)on 10-20-2021 Cholesterol in HDL [Mass/Vol] 49 mg/dL >40 [facility] Work Phone: Comment on above: The drugs N-Acetylcy steine and Metamizole may falsely depress this assay. Reference Range HDL <40 mg/dL Low HDL Cholesterol HDL >or= 60 mg/dL High HDL Cholesterol Serum or plasma cholesterol in VLDL measurement (mass/volume)on 10-20-2021 Cholesterol in VLDL [Mass/Vol] 38 mg/dL 5-40 [facility] Work Phone: Serum or plasma creatinine m easurement (mass/volume)on 10-20-2021 Creatinine [Mass/Vol] 0.85 mg/dL 0.55-1.02 [facility] Work Phone: Comment on above: The validity of the calculated GFR & GFRAA in patients over 70 years has not been determined. Clinical correlation is essential. Serum or plasma low density lipoprotein (LDL) cholesterol measurement (mass/volume)on 10-20-2021 Cholesterol in LDL [Mass/Vol] 135 mg/dL 0-130 [facility] Work Phone: Serum or plasma urea nitroge n measurement (mass/volume)on 10-20-2021 Urea nitrogen [Mass/Vol] 21 mg/dL 7-18 [facility] Work Phone: Thin prep Papanicolaou smear with manual screeningon 10-20-2021 Thin prep Papanicolaou smear with manual screening 6 5-15 [facility] Work Phone: Therapy Communicationon 10-14 Therapy Communication Message ESNA ROSADO canceled today PT initial eval. Signatures Electronically signed by : Sarah Canales, PT; Nov 01 2020 10:40AM EST (Author) Normal [employer] CT C-SPINE WO CONTRASTon CT C-SPINE WO CONTRAST Patient Name: SENA ROSADO STUDY: CT C-SPINE WO CONTRAST; 09/24/2020 3:17 pm INDICATION: fall. COMPARISON: None. ACCESSION NUMBER(S): [id number] ORDERING CLINICIAN: JO LEGGETT TECHNIQUE: Axial CT images of the cervical spine are obtained. Axial, coronal and sagittal reconstructions are provided for review. FINDINGS: CT CERVICAL SPINE: Fractures: There is no evidence for an acute fracture of the cervical spine. There is a nondisplaced fracture of the posterior right 3rd rib seen best on coronal image number 61, possible fracture also of the posterior right 2nd rib near the costovertebral junction coronal image 56, and possibly of the posterior right 4th rib on axial image 96. Vertebral Alignment: Within normal limits. Craniocervical Junction: The odontoid process and craniocervical junction are intact. Vertebrae/Disc Spaces: No vertebral body height loss. Disc space narrowing and endplate osteophytes noted at multiple levels, most significantly C5-6 and C6-7, consistent with spondylosis. No significant canal stenosis or severe neural foraminal narrowing. No suspicious osseous lesion. Small circumscribed lucency in the C3 body is probably a small hemangioma, and a fat density internally. Prevertebral/Paraspinal Soft Tissues: The prevertebral and paraspinal soft tissues are unremarkable. There is no pneumothorax. Mild apical pleuroparenchymal scarring bilaterally. IMPRESSION: 1. No evidence of acute cervical spine fracture. Degenerative changes in the cervical spine, most notable at C5-6 and C6-7. 2. There are subtle nondisplaced right posterior rib fractures involving 2nd 3rd and 4th ribs. No pneumothorax or displaced rib fracture. Electronically signed by: DANIEL HOPSON MD [facility] CT CHEST WO CONTRASTon 09-24 CT CHEST WO CONTRAST Patient Name: [place], [place] STUDY: CT CHEST WO CONTRAST; 09/24/2020 4:08 pm INDICATION: rib fx on ct c spine. Fall COMPARISON: CT cervical spine same date ACCESSION NUMBER(S): [id number] ORDERING CLINICIAN: JO LEGGETT TECHNIQUE: Helical data acquisition of the chest was obtained without IV contrast material. Images were reformatted in axial, coronal, and sagittal planes. FINDINGS: LUNG/PLEURA/LARGE AIRWAYS: No consolidation, infiltrate, pleural effusion or pneumothorax. Airways are clear. There is some mild apical pleuroparenchymal scarring noted.. VESSELS: Aorta and pulmonary arteries are normal caliber. Moderate coronary artery calcification. HEART: Heart size mildly enlarged. MEDIASTINUM AND ROCK: No mediastinal or hilar lymphadenopathy. Esophagus appears normal, small hiatal hernia noted. CHEST WALL AND LOWER NECK: Previously noted possible nondisplaced medial right posterior 2nd rib fracture is again noted however it is difficult to tell if the lucency seen is a nutrient vessel or an actual fracture line. Nevertheless, it is unchanged. Nondisplaced right posterior 3rd rib fracture unchanged, seen on coronal image number 95. Posterior nondisplaced right 4th rib fracture is subtle and also not significantly changed, image 56 series 4. No fracture of the clavicle or scapulae. No fracture of the thoracic spine. No vertebral body height loss in the thoracic spine. Few nonacute appearing Schmorl's nodes are noted and some mild degenerative changes. There is a healed sternal fracture, nondisplaced, just below the sternomanubrial joint. The soft tissues of the chest wall demonstrate no gross abnormality. No axillary adenopathy. The visualized thyroid gland appears within normal limits. UPPER ABDOMEN: The visualized subdiaphragmatic structures demonstrate no remarkable findings. IMPRESSION: 1. Nondisplaced hairline fractures posterior right 3rd and 4th ribs, unchanged; right posterior 2nd rib finding could be a nondisplaced fracture versus nutrient vessel. No pneumothorax or effusion. No thoracic spine fracture is evident. 2. Small hiatal hernia. 3. Mild cardiac enlargement and moderate coronary artery atherosclerosis. Electronically signed by: DANIEL HOPSON MD [facility] Provider Note - ED v3on 09-12 Provider Note - ED v3 Provider Note: Chart Review: HISTORY OF PRESENTING ILLNESS SENA is a 59 year old Female and was seen by me at 24-Sep-2020 14:40 for a chief complaint of fall (states a work today she tripped, fell and hit her chin on boxes she was carrying. c/o right neck, right upper back and b knee pain. denies loc. c-collar applied)(1). Triage Information: Most recent Vital Sign Value Date Temp (F): 98.2 09-24-2020 14:50 Temp (C): 36.7 09-24-2020 14:50 Heart Rate (beats/min): 87 09-24-2020 14:50 Respirations (breaths/min): 18 09-24-2020 14:50 SpO2 (%): 96 09-24-2020 14:50 BP Systolic (mm Hg): 232 09-24-2020 14:50 BP Diastolic (mm Hg): 133 09-24-2020 14:50 PAST MEDICAL HISTORY ALLERGIES/INTOLERANCES: No Known Allergies HEALTH HISTORY: No documented data. OUTPATIENT MEDICATIONS: Home Medications Review Status for Reconciliation: Complete Med Status: Patient Currently Takes Medications Drug Name: Vitamin D3 25 mcg (1000 intl units) oral tablet Instructions: 1 tab(s) orally once a day Drug Name: esomeprazole 40 mg oral delayed release capsule Instructions: 1 cap(s) orally once a day Drug Name: glucosamine 500 mg oral capsule Instructions: 1 cap(s) orally once a day Drug Name: Aspirin Enteric Coated 81 mg oral delayed release tablet Instructions: 1 tab(s) orally once a day Drug Name: losartan 100 mg oral tablet Instructions: 1 tab(s) orally once a day Drug Name: hydroCHLOROthiazide 25 mg oral tablet Instructions: 1 tab(s) orally once a day Drug Name: cyclobenzaprine 10 mg oral tablet Instructions: 1 tab(s) orally 3 times a day, As Needed -for muscle spasm Drug Name: hydrocodone-acetaminoph en 5 mg-325 mg oral tablet Instructions: 1 tab(s) orally every 6 hours, As Needed -for severe pain Drug Name: IBU 800 mg oral tablet Instructions: 1 tab(s) orally 3 times a day, As Needed -for pain - for fever SIGNIFICANT EVENTS: Past Medical History Description:Hypertensio n (HTN) CRITICAL CARE RESULTS: Radiology Results: Impression: 1. Nondisplaced hairline fractures posterior right 3rd and 4th ribs, unchanged; right posterior 2nd rib finding could be a nondisplaced fracture versus nutrient vessel. No pneumothorax or effusion. No thoracic spine fracture is evident. 2. Small hiatal hernia. 3. Mild cardiac enlargement and moderate coronary artery atherosclerosis. CT Chest without Contrast [Sep 24 2020 4:39PM] Impression: No evidence of acute fracture. Degenerative changes in the lumbar spine, most notably L4-5 disc and lower lumbar facets. Xray Lumbar Spine AP + Lateral [Sep 24 2020 4:24PM] Impression: 1. No evidence of acute cervical spine fracture. Degenerative changes in the cervical spine, most notable at C5-6 and C6-7. 2. There are subtle nondisplaced right posterior rib fractures involving 2nd 3rd and 4th ribs. No pneumothorax or displaced rib fracture. CT C Spine without Contrast [Sep 24 2020 3:43PM] Impression: Xray Thoracic Spine 2 View AP + Lateral [Sep 24 2020 3:40PM] VITAL SIGNS: T PRBP SpO2O2(LPM) %FiO2 Method 24-Sep-2020 17:00:[id number]/108 96 room air, no respiratory support 24-Sep-2020 15:51:00-1055652/118 96 room air, no respiratory support 24-Sep-2020 14:50:[id number]/13 3 96 room air, no respiratory support 24-Sep-2020 14:35:[id number]/13 3 96 room air, no respiratory support MDM MDM/ED COURSE: PMH: Reviewed PSH: Reviewed Social History: Reviewed. Allergies reviewed. HPI: This is a 59 year old female with PMH HTN, GERD, who presents to the ED today with complaints of fall. She was carrying several boxes at work when she tripped, falling forward onto her knees. She struck her chin on the boxes. She states her back bent backwards and she felt pain from her upper to her lower back pretty quickly. She laid on the floor for 1-2 minutes. She rolled herself over to get herself up. She took 800mg ibuprofen. She has some continued right upper back pain, prompting her ED visit. Also noted to have elevated BP reading in triage, states has been out of her HTN medications and has not yet made an appt with her PCP for a refill. REVIEW OF SYSTEMS: All other systems reviewed and negative except as listed in HPI. PHYSICAL EXAM: GENERAL: Vitals noted, no distress. Alert and oriented x 3. Non-toxic. HEENT: Atraumatic. TMs clear. Posterior oropharynx unremarkable. EOMI, no nystagmus noted. PERRL. NECK: Supple. No masses. No midline tenderness. No meningeal signs. C-collar in place. CARDIAC: Regular rate, rhythm. No murmurs rubs or gallops. No JVD. PULMONARY: Lungs clear and equal bilaterally. No wheezes rales or rhonchi. No respiratory distress. ABDOMEN: Soft, nondistended, and nontender. No peritoneal signs. Bowel sounds are present and normoactive in all 4 quadrants. No pulsatile masses. EXTREMITIES: No peripheral edema. (more content not included)... Normal [facility] Risk Screen - Adult Emergenc yon 09-24-2020 Risk Screen - Adult Emergency Preferred Language: Preferred Language: Preferred Language for Discussing Health Care (patient/designee)Shalonda sawyer Advanced Directives: Advance Directive/DNRno Family Violence Adult: Abuse Screen: Are you or have you been threatened or abused physically, emotionally, or sexually by anyoneno Learning Assessment (Patient): Learning Assessment (Patient): Patient is Able to be Assessed for Learningyes Factors Influencing Readiness to Learnn/a Factors that Impact Ability to Learnnone Devices/Methods Used to Communicatenone Learning Preferencesverbal instruction; written material Cultural Considerationsnone Developmental Considerationsnone Cheondoism Considerationsnone Learning Assessment (Other Learner): Learning Assessment (Other Learner): Other learner availableno Pressure Injury/TB/Substance: Pressure Injury: Do you have a coughno Smoking Statusnever smoker Alcohol Useoccasionally Drug Usedenies Admission Risk Screen: Significant IndicatorsComplete CAGE: CAGE: Is this an injured patient at a Trauma Center ([facility]/[place]): no Electronic Signatures: Svitlana Tolbert (SHELLIE) (Signed 24-Sep-2020 15:02) Authored: Preferred Language, Advanced Directives, Family Violence Adult, Learning Assessment (Patient), Learning Assessment (Other Learner), Pressure Injury/TB/Substance, Pressure Injury, CAGE Last Updated: 24-Sep-2020 15:02 by Svitlana Tolbert (SHELLIE) Normal [facility] SPINE, LUMBOSACRAL 2 OR 3 EWSon 09-24-2020 SPINE, LUMBOSACRAL 2 OR 3 VIEWS Patient Name: SENA ROSADO STUDY: SPINE, LUMBOSACRAL; 2 OR 3 VIEWS; ; 09/24/2020 4:01 pm INDICATION: fall. COMPARISON: None. ACCESSION NUMBER(S): [id number] ORDERING CLINICIAN: JO LEGGETT FINDINGS: Normal lumbar spine alignment. No lumbar vertebral body height loss or evidence of an acute fracture. Disc space narrowing and endplate osteophytes are noted at the L4-L5 level, with minimal endplate osteophytes elsewhere and relatively preserved disc spaces. There are mild facet osteophytes in the lower lumbar spine. Degenerative change also noted in the left sacroiliac joint. Soft tissues are unremarkable. IMPRESSION: No evidence of acute fracture. Degenerative changes in the lumbar spine, most notably L4-5 disc and lower lumbar facets. Electronically signed by: DANIEL HOPSON MD [facility] Triage - EDon 09-24-2020 Triage - ED Chart Review: PRIMARY ASSESSMENT ABCD Normal Findings: airway open and patent, circulation normal and alert and oriented ARRIVAL INFORMATION Means of Arrival: Ambulatory Mode of Arrival: private vehicle Arrival From: home Accompanied By: self Language: Spoken Language Preferred: Bulgarian Reading Language Preferred: Bulgarian Present on Arrival: Device Present on Arrival to ED: no CHIEF COMPLAINT SENA ROSADO is a Female patient with a chief complaint of fall (states a work today she tripped, fell and hit her chin on boxes she was carrying. c/o right neck, right upper back and b knee pain. denies loc. c-collar applied). Triage Date/Time: 24-Sep-2020 14:35 ABBY: 4 Pain Rating (0-10): 6 = Moderate Pain location: neck/back Vital Signs: Temperature: 98.2F ( 36.7C) taken oral Blood Pressure: 232/133 Mean: Heart Rate: 87 Respiratory Rate: 18 Pulse Oximetry: 96% on room air, no respiratory support. Height: 5 feet 7 inches. 170.1 CM Weight: 200.6 pounds. Calculated 91.0 kg. (stated) Calculated BMI (kg/m2): 31.450 Calculated BSA (m2) 2.07 Ayleen Coma Scale: Best Eye Response: (E4) spontaneous Best Motor Response: (M6) obeys commands Best Verbal Response: (V5) oriented Ayleen Score: 15 Allergies: no Patient has homicidal thoughts: no Symptoms Are POSITIVE For: pain (describe). Symptoms Are Negative For: loss of consciousness. Risk Screens Suicide Risk Screen In the Past Month: Have you wished you were or wished you could go to sleep and not wake up no In the Past Month: Have you had any actual thoughts of killing yourself no In Your Lifetime: Have you ever done anything, started to do anything, or prepared to do anything to end your life no Robertson Fall Scale Screening Has the patient fallen before (or is the patient in the ED as a result of a fall) has had a fall Does the patient have an impaired gait does not have impaired gait Is the patient cognitively impaired not cognitively impaired Robertson Fall Scale History of falling (immediate or previous) no (0) Secondary Diagnosis no (0) Intravenous Therapy/ Heparin/Saline Lock no (0) Gait/Transferring normal/bedrest/wheelcha ir (0) Ambulatory Aids none/bedrest/nurse assist (0) Mental Status oriented to own ability (0) Robertson Fall Risk Score: 0 Interventions: Robertson Fall Interventions: LOW INTERVENTIONS: *patient oriented to surroundings and call system, * patient/family falls education completed and documented, *patients fall status communicated during bedside handoff, *whiteboard updated, *mode of toileting discussed with patient, *bed in low position with brakes locked, *call light in reach, * non-skid footwear TRAVEL HISTORY Travel History Coronavirus Screening: no exposure or symptoms Travel Exposure History: NO travel to International locations in the past 30 days PAIN Pain Scale Used: GHAZALA Pain Rating (0-10): 6 = Moderate Past Medical History: Past Medical History Reviewedyes Hypertension (HTN): Past Medical History, Active Electronic Signatures: Svitlana Tolbert (SHELLIE) (Signed 24-Sep-2020 15:01) Entered: Risk Screens, Pain, Arrival, ABCD, Travel History, Chart Review, Scores, Past Medical History Authored: Quick Triage, Risk Screens, Pain, Arrival, ABCD, Travel History, Chart Review, Scores, Past Medical History Last Updated: 24-Sep-2020 15:01 by Svitlana Tolbert (SHELLIE) [facility] Vital Signs Date Time Vital Sign Value Performing Clinician Facility 09-24-2020 19:00-0400 Diastolic blood pressure 108 mm[Hg] Pcp Unknown [facility] 09-24-2020 19:00-0400 Heart rate 81 /min Pcp Unknown [facility] 09-24-2020 19:00-0400 Respiratory rate 18 /min Pcp Unknown [facility] 09-24-2020 19:00-0400 SaO2% (BldA) [Mass fraction] 96 % Pcp Unknown [facility] 09-24-2020 19:00-0400 Systolic blood pressure 201 mm[Hg] Pcp Unknown [facility] 09-24-2020 16:50-0400 Body height 170.1 cm Pcp Unknown [facility] 09-24-2020 16:50-0400 Body temperature 98.06 [degF] Pcp Unknown [facility] 09-24-2020 16:50-0400 Body weight 91 kg Pcp Unknown [facility] Encounters Encounter Date Encounter Type Care Provider Facility Start: 08-01-2024 End: 08-01-[address] Yusuf Bobo MD Work Phone: [facility] Work Phone: Start: 08-01-2024 End: 08-01-[address] Yusuf Bobo MD -Laboratory [facility] Start: 08-01-2024 End: 08-01-2024 ambulatory Yusuf Bobo Facility:[facility] Start: 10-05-2023 End: 10-05-2023 ambulatory Yusuf Bobo Facility:[facility] Start: 08-10-2023 End: 08-10-2023 Emergency department [facility] Start: 08-10-2023 ambulatory [facility] Start: 10-20-2021 End: 10-20-2021 ambulatory [facility] Work Phone: Start: 10-20-2021 End: 10-20-2021 [facility] Start: 11-01-2020 Patient encounter procedure Referring Provider Unknown [facility] Work Phone: Start: 09-24-2020 End: 09-24-2020 Emergency department patient visit Jo Oleksandr [facility] Emergency 07 Start: 09-02-2014 End: 09-02-2014 Emergency department patient visit VARUN HELTON Facility:[facility] Plan of Treatment Date Care Activity Detail Author Start: 09-24-2024 ambulatory Ambulatory Facility:[facility] Payers Date Payer Category Payer Unknown [id number] 2023 Self-pay [id number] 2003 Private Health Insurance [id number] Medicaid MEDICAID [id number] Private Health Insurance AETNA [id number] Private Health Insurance CIGNA [id number] Unknown Unknown UNINSURED [id number] RELATED [id number] Unknown [id number] Unknown [id number] Unknown [id number] Social History Date Type Detail Facility [facility] Start: 11-19-2020 Tobacco smokin g consumption unknown [facility] Start: 1960 Sex Assigned At Female [facility] Start: 11-19-2020 Tobacco smoking status NHIS Never smoked tobacco (finding) [facility] Evaluation note Note Date & Type Note Facility Evaluation note No assessment information availa [facility] Work Phone: Reason for referral (narrative) Note Date & Type Note Facility Reason for referral (narrative) No reason for referral information available [facility] Work Phone: Summary Purpose Family History No Family History Records Found Relationship Condition Age at Onset Recorded Date/T lizz mother Cerebrovascular accident (CVA) Unknown Diabetes mellitus Unknown Hypertension Unknown Cardiac disease Unknown father Hypertension Unknown Advance Directives No Advanced Directives Records Found Advance Directive Response Recorded Date/ Time Living Will No November 19 6:42pm Power of Pony Rougher No November 19 021 6:42pm Additional Source Comments INFORMATION SOURCE (unrecogn ized section and content) DATE CREATED AUTHOR 08/08/2017 Roland Camargo [employer] DATE CREATED AUTHOR AUTHOR'S ORGANIZ ATION 10/02/2020 [facility] DATE CREATED AUTHOR AUTHOR'S ORGANIZ ATION 11/01/2020 [employer] DATE CREATED AUTHOR AUTHOR'S ORGANIZ ATION 08/12/2023 [facility] DATE CREATED AUTHOR AUTHOR'S ORGANIZ ATION 08/31/2023 [facility] DATE CREATED AUTHOR AUTHOR'S ORGANIZ ATION 09/14/2024 [facility] <item> Privacy Markings (unrecogniz ed section and content) Section Author: Alana King PROHIBITION ON REDISCLOSURE OF CONFIDENTIAL INFORMATION This notice accompanies a disclosure of information concerning a client made to you with the consent of such client. Goals (unrecognized section and content) Goals may be documented in a n alternate sectionGoals may be documented in an alternate section Care Teams (unrecognized sec tion and content) Team Status: Active Member Role Status Dates Dr. Yusuf Bobo MD Primary Care Provider Active Team Status: Inactive Member Role Status Dates Dr. Yusuf Bobo MD Primary Care Provider Active Start: August 01, 2024 End: August 01, 2024 Dr. Yusuf Bobo MD Attending Provider Active Start: August 01, 2024 End: August 01, 2024 Dr. Yusuf Bobo MD Referring Provider Active Start: August 01, 2024 End: August 01, 2024 FOR RECORDS PERTAINING TO PATIENTS WHO ARE OR HAVE BEEN ENROLLED IN A CHEMICAL DEPENDENCY/SUBSTANCEABUSE PROGRAM, SOME INFORMATION MAY BE OMITTED. This clinical summary was aggregated from multiple sources. Caution should be exercised in using it in the provision of clinical care. This summary normalizes information from multiple sources, and as a consequence, information in this document may materially change the coding, format and clinical context of patient data. In addition, data may be omitted in some cases. CLINICAL DECISIONS SHOULD BE BASED ON THE PRIMARY CLINICAL RECORDS. [employer] provides no warranty or guarantee of the accuracy or completeness of information in this document.
--- NOTE | 2024-09-25 07:24 | STRESSREP ---
Stress Test Report Exercise myocardial perfusion stress test. 63-year-old lady with a history of shortness of breath with exertion Stress protocol: Resting EKG demonstrates normal sinus rhythm with a rate of 58 bpm resting blood pressure is 130/82 mmHg. The patient exercised according to the regular Remi protocol for a total duration of 4 minutes and 31 seconds attaining a maximum heart rate of 123 bpm which was 78% of maximum predicted heart rate; the maximum workload was 7 metabolic equivalents. At rest there were no ST or T wave changes noted to suggest ischemia and at peak exercise upsloping ST changes only were noted which did not meet the criteria for ischemia. No clinical angina was noted the test was terminated due to the target heart rate being achieved/fatigue and shortness of breath. The peak blood pressure was 188/92 mmHg. Rate-pressure product was 18,900. Myocardial perfusion protocol. 13.6 mCi of technetium 99m sestamibi was injected at rest. The patient exercised according to regular Remi protocol for total duration of 4 minutes and 31-second and at peak exercise 45.0 mCi of technetium 99m sestamibi was injected stress images were obtained stress and rest images were reconstructed in comparing the short axis vertical long and horizontal long axis. Gated images were also obtained. Perfusion SPECT analysis: Review of the stress images demonstrate normal uptake of tracer noted in all areas of the myocardium. The resting images similarly demonstrate normal uptake of tracer noted in all areas of the myocardium. No areas of reversibility are noted to suggest ischemia no previous infarct was noted. Gated SPECT analysis: The gated ejection fraction is 73%. Conclusion: Normal exercise myocardial perfusion stress test at a moderate workload Preserved ejection fraction.
== END | disposition home or self-care (01) ==
LOC: CVS 06:59
PROVIDERS: PCP Family Medicine; Referring Provider Family Medicine; Visit Provider Family Medicine
DX: R06.02 Shortness of breath (principal)
CPT/HCPCS: 78452; 93017; A9500; A4216